=== PATIENT | male | born 1955 | race Caucasian/White ===

== ENCOUNTER 2016-09-24 09:49 | Outpatient (CLI) ==
[2016-01-31 17:35] VITALS: BMI 39.3
--- NOTE | 2016-09-24 12:12 | CT ---
Exam: CT scan of the abdomen and pelvis with intravenous contrast material History: Bilateral upper quadrant pain Findings: Computed tomography of the abdomen and pelvis was performed utilizing intravenous injecti on of 75 ml of Visipaque 320. Scans reviewed in the axial plane at 5 mm slice thickness and in the coronal and sagittal planes at 3 mm slice thickness with comparison made to the prior study from . Review of lung window settings through the lung bases shows no evidence of acute basilar i nfiltrate, consolidate or basilar pleural effusion. The enhanced liver measures less dense than the spleen suggesting mild diffuse fatty infiltration. The spleen does not appear to be overtly enlarged on the present study measured approximately 12.9 c m in length. The gallbladder has been previously resected. The pancreas appeared without significa nt abnormality. The adrenal glands appear to be of normal size and configuration. Bilaterally ther e is satisfactory enhancement of both kidneys without evidence of radiopaque renal nor ureteral calc ulus nor evidence of hydronephrosis nor ureteral dilatation. The bladder is distended with non enha nced urine and without significant abnormality demonstrated. There is a moderate degree of diffuse atherosclerotic calcification of the abdominal aorta and the c ommon iliac arteries but without associated aneurysmal dilatation. Throughout the abdomen and pelvis there is no evidence of a concerning mass, evidence of pathologic adenopathy, evidence of active inflammatory changes nor abnormal fluid collection. Severe degenerative disc disease is noted at the lumbosacral articulation where there also appears t o be approximately 7-8 mm of anterior spondylolisthesis of L5 relative to S1 seen in association wit h at least a left-sided pars defect and severe bilateral facet joint degenerative changes. Impression: Suspect mild diffuse fatty infiltration of the liver. No evidence of active inflammatory changes, abnormal fluid collection nor concerning mass nor pathol ogic adenopathy. Spleen is borderline elongated measuring approximate 12.9 cm in length. Grade 1 anterior spondylolisthesis of L5 relative to S1 seen in association with severe disc space d egenerative changes and at least a unilateral pars defect of L5.
== END 2016-09-24 09:50 | disposition home or self-care (01) ==
LOC: RAD 09:49
PROVIDERS: ATTEND Internal Medicine
DX: R10.10 Upper abdominal pain, unspecified (principal)

== ENCOUNTER 2017-01-20 08:30 | Day surgery (SDC) ==
[2016-01-31 17:35] VITALS: BMI 39.3
[2017-01-20] MEDS ORDERED: LIDOCAINE 1% 20 ML MDV ID ONE (08:57)
[2017-01-20] MEDS ORDERED: VERSED ONE (10:45)
[2017-01-20] MEDS ORDERED: DIPRIVAN 20 ML VIAL IVP ONE (10:45)
[2017-01-20] MEDS ORDERED: SUBLIMAZE ONE (10:45)
[2017-01-20 12:05] VITALS: BP 111/65; TEMP 98
--- NOTE | 2017-01-21 09:30 | OP ---
INDICATIONS FOR PROCEDURE: 61-year-old gentleman presents for colonoscopy exam. He has a history of adenomatous polyps removed 3 1/2 years ago. MEDICATIONS: SEE ANESTHESIA NOTES. PROCEDURE: COLONOSCOPY, SNARE POLYPECTOMY. REPORT: The risks, benefits, alternatives and limitations were discussed in detail with the patient. Informed consent was obtained. After adequate sedation was achieved, a digital rectal exam revealed good tone, no masses. The colonoscope was introduced into the rectum and advanced under direct visual guidance to the cecum. The cecum was identified by the appendiceal orifice and IC valve. I then slowly withdrew the scope in a circumferential manner examining the mucosa quite carefully. I looked on the proximal and distal side of folds and flexures as best as possible. I was able to retroflex the scope in the right colon and left colon to increase visualization. In the transverse colon there was a 6 mm semi sessile polyp that I removed by snare technique. In the descending area there were two polyps about 5 or 6 mm size, slightly raised both removed by snare technique. One of them was destroyed, the other one was retrieved. In the rectum there was a 5 mm slightly raised polyp that I removed by snare technique. No other abnormalities were noted including on retroflex view of the anal canal. The prep was adequate. The withdrawal time was 16 minutes and 7 seconds. The patient tolerated the procedure well with stable vital signs and pulse oximetry throughout. IMPRESSION: 1. FOUR (4) POLYPS REMOVED. RECOMMENDATIONS: 1. High fiber diet. 2. Office visit as needed. 3. Colonoscopy examination again in 3 years, sooner if there are any signs or symptoms to indicate otherwise. CC: DR. DESIRAE MCCORD
== END 2017-01-20 12:12 | disposition home or self-care (01) ==
LOC: SURG 08:30
PROVIDERS: ATTEND Internal Medicine Gastroenterology
DX: Z09 Encounter for follow-up examination after completed treatment for conditions other than malignant neoplasm (principal); Z86.010 Personal history of colon polyps; D12.3 Benign neoplasm of transverse colon; D12.4 Benign neoplasm of descending colon; D12.7 Benign neoplasm of rectosigmoid junction; K63.5 Polyp of colon; E11.9 Type 2 diabetes mellitus without complications
CPT/HCPCS: 82962

== ENCOUNTER 2017-04-28 12:27 | Outpatient (CLI) | payer OTHER ==
[2016-01-31 17:35] VITALS: BMI 39.3
[2017-04-28 12:55] LABS: BASOPHILS % (AUTO) 0.4 % (0.0-3.0); EOSINOPHILS # (AUTO) 0.3 K/ul (0.0-0.7); HEMATOCRIT 45.1 % (42.0-52.0); HEMOGLOBIN 15.7 g/dl (14.0-18.0); IMMATURE GRANULOCYTE % (AUTO) 0.7 % (0.0-5.0); LYMPHOCYTES # (AUTO) 2.7 K/uL (0.60-3.4); MEAN CORPUSCULAR HGB CONC 34.8 (31.8-35.4); MEAN CORPUSCULAR VOLUME 83.4 fl (80.0-94.0); MONOCYTES # (AUTO) 0.5 K/uL (0.4-2.0); MONOCYTES % (AUTO) 7.1 (0-10); NEUTROPHILS # (AUTO) 3.7 K/ul (2.0-6.9); NEUTROPHILS % (AUTO) 50.8; PLATELET COUNT 178 10^3/uL (140-440); RED BLOOD COUNT 5.41 10^6/ul (4.70-6.10); WHITE BLOOD COUNT 7.29 K/ul (4.2-10.2)
[2017-04-28 13:33] LABS: ALBUMIN 3.9 g/dL (3.4-5.0); ALBUMIN/GLOBULIN RATIO 1.15; ANION GAP 14.1; BILIRUBIN,TOTAL 0.47 mg/dL (0.00-1.20); BUN/CREATININE RATIO 14.28; CALCIUM 9.9 mg/dL (8.2-10.2); CHOL/HDL RATIO 3.2 (4.5-6.4); CREATININE 1.19 mg/dL (0.60-1.10); POTASSIUM 4.1 mmol/L (3.5-5.1); TOTAL PROTEIN 7.3 g/dL (5.8-8.1)
== END 2017-04-28 12:28 | disposition home or self-care (01) ==
LOC: LAB 12:27
PROVIDERS: ATTEND Emergency Medicine
DX: E78.5 Hyperlipidemia, unspecified (principal); E11.9 Type 2 diabetes mellitus without complications; I10 Essential (primary) hypertension; J44.9 Chronic obstructive pulmonary disease, unspecified; K21.9 Gastro-esophageal reflux disease without esophagitis
CPT/HCPCS: 36415; 80053; 80061; 83036; 84443; 85025

== ENCOUNTER 2017-10-19 09:38 | Outpatient (CLI) ==
[2016-01-31 17:35] VITALS: BMI 39.3
--- NOTE | 2017-10-19 10:26 | DI ---
Exam: Left shoulder three-view History: Shoulder pain Findings / impression: At least moderate osteoarthritic change of the glenohumeral joint manifest by marginal osteophytosis and probable subchondral cysts. Mild osteoarthritic enlargement of the acrom ioclavicular joint. No acute bony or articular abnormalities are seen.
== END 2017-10-19 09:39 | disposition home or self-care (01) ==
LOC: LAB 09:38
PROVIDERS: ATTEND Physician Assistant Medical
DX: E78.5 Hyperlipidemia, unspecified (principal); E03.9 Hypothyroidism, unspecified; R53.83 Other fatigue; E05.90 Thyrotoxicosis, unspecified without thyrotoxic crisis or storm; I10 Essential (primary) hypertension; M25.512 Pain in left shoulder; E11.9 Type 2 diabetes mellitus without complications; Z79.4 Long term (current) use of insulin
CPT/HCPCS: 36415; 80053; 80061; 82043; 83036; 84439; 84443; 85025

== ENCOUNTER 2017-10-26 09:43 | Outpatient (CLI) ==
[2016-01-31 17:35] VITALS: BMI 39.3
--- NOTE | 2017-10-26 10:19 | DI ---
EXAM: Chest two views HISTORY: Intercostal pain COMPARISON: 01/31/2016 TECHNIQUE: Two views of the chest were performed FINDINGS: The lungs are clear. Chronic blunting left costophrenic angle likely pleural parenchymal scarring. No definite pleural effusion. No visible pneumothorax. The heart is normal in size. The mediastinal contour is normal. There are no acute abnormalities of the bones. Right shoulder arthro plasty. IMPRESSION: No acute cardiopulmonary process.
--- NOTE | 2017-10-26 10:24 | DI ---
EXAM: Right knee, four views, 10/26/2017 HISTORY: Pain COMPARISON: None. FINDINGS / IMPRESSION: Moderate osteoarthritic degenerative change. Medial joint space narrowing. Tricompartmental osteophyte formation. There is no evidence of fracture or subluxation. The extensor mechanism is intact. Trace suprapatel lar joint effusion.
--- NOTE | 2017-10-26 10:31 | DI ---
Exam: Four x-rays of the left knee. Comparison: 07/20/2007. Reason for exam: Pain in left knee. FINDINGS: No acute fracture or dislocation. Calcifications are seen in the region of the lateral co llateral ligament insertion. There is mild medial and patellofemoral joint space narrowing with oste ophyte formation. Impression: 1. No acute fracture or dislocation is seen. 2. Calcifications in the region of the lateral collateral ligament insertion. Imaging findings can be seen with trauma and degeneration. If clinical concern exists, further evaluation may be performe d. 3. Mild to moderate degenerative disease in the left knee.
== END 2017-10-26 09:44 | disposition home or self-care (01) ==
LOC: RAD 09:43
PROVIDERS: ATTEND Emergency Medicine
DX: R07.82 Intercostal pain (principal); M25.561 Pain in right knee; M25.562 Pain in left knee; G89.29 Other chronic pain

== ENCOUNTER 2017-10-27 09:41 | Outpatient (CLI) | payer OTHER ==
[2016-01-31 17:35] VITALS: BMI 39.3
--- NOTE | 2017-10-27 10:48 | DEXA ---
Exam: Bone densitometry DEXA scan performed on the [employer]. Comparison: None available. Reason for exam: Other specified disorder of bone density. FINDINGS: Imaging was obtained of the lumbar spine and deemed to be adequate for interpretation. The total BMD of the lumbar spine measures 1.440 grams per centimeter squared T-score 1.8. Z-score 1.5 WHO classification suggests normal bone mineral density Imaging was obtained of the left and right hip and deemed to be adequate for interpretation. Total BMD of the left hip measures 1.215 grams per centimeter squared T-score 0.8. Z-score 0.8 The BMD of the left femoral neck measures 0.957 grams per centimeter squared T-score -0.9. Z-score -0.4 WHO classification suggests normal bone mineral density Total BMD of the right hip measures 1.194 grams per centimeter squared T-score 0.6. Z-score 0.7 BMD of the right femoral neck measures 0.94 grams per centimeter squared T-score -0.7. Z-score -0.2 WHO classification suggests normal bone mineral density Impression: 1. WHO classification suggests normal bone mineral density of the lumbar spine and both hips. 2. WHO fracture risk assessment tool (FRAX) 10-year fracture risk percentage Major osteoporotic fracture risk over 10 years. 4.6%. Hip fracture risk over 10 years. 0.4%.
== END 2017-10-27 09:42 | disposition home or self-care (01) ==
LOC: RAD 09:41
PROVIDERS: ATTEND Emergency Medicine
DX: M85.89 Other specified disorders of bone density and structure, multiple sites (principal)

== ENCOUNTER 2017-12-03 09:00 | Outpatient (RCR) ==
[2016-01-31 17:35] VITALS: BMI 39.3
--- NOTE | 2017-11-10 11:38 | RS.OPPTEV2 ---
Date of Note: 11/10/17 Visit #: 1 Date of Evaluation: 11/10/17 Payer Source: MEDICARE Treatment Diagnosis: Calcific tendonitis L shld History of Condition/Mechanism of Injury:: pt reports that pain in L shld began approx 08/2017. pt states he has had long hx of issues with R shld s/p 4 sx. pt states he did not suffer any specific injury to L shld it just began hurting. Prior Level of Function.....Patient was independent with: ADL's, Self Care, Ambulation/Mobility, Community Integration/Access Functional Limitations: Sleep, ADL's, Reaching, Pushing, Pulling, Lifting, Carrying Current Subjective/complaints:: pt states he saw Dr. Evangelista and he gave him some sample of a topical analgesic for L shld and it really helps, states the L shld pain limits his sleep. Treatment Side (optional): Left *Precautions: n/a Medical History Medical History: Hypertension, Diabetes, Arthritis Surgical History: Cholecystectomy, Other Surgical History Comments:: Reverse total shoulder replacement, appey, cataract sx. Smoking Status: Former smoker Diagnostic Testing/Imaging:: states he had x rays at [facility]. Hx Home Medications: fenofibrate, lisinopril, amitriptylin, rapaflo, ranitidine , latanoprost, rosuvastatin, omega 3, metformin, citalopram, potassium cl, duloxetine, furosemide, esomepra mag, carvedilol, humalog, hydroco/apap, victoza , invokana, diazepam, tramadol Pain Assessment - Pain Description Pain Location: L shld Pain Description: Aching Current Pain Intensity: 0 at rest Worst Pain Intensity: 9/10 Other Comments regarding Pain:: States the topical analgesic has really helped him. Functional Outcome Measure UE Functional Index: 29 (64%) - G Codes & Severity Modifier G Codes & Modifier: carrying, moving, handling current CL. carrying, moving, handling goal CJ Source of G Code score: UE functional index. Observation - Observation Posture: Forward Head, Rounded Shoulders, Increased Thoracic Kyphosis Handedness: Right Gait - Gait Pattern General Gait Pattern Observation: No Deviations/Normal General Range of Motion: BLE WFL's. RUE WFL's Muscle Strength: BLE 5/5. RUE shld flex 4+/5, elbow flex/ext 4+/5, Shoulder ROM: Right WFL's - Left Shoulder ROM Left Shoulder Flexion: 160 (AAROM) Left Shoulder Abduction: 130 (AAROM) Left Shoulder External Rotation: 40 (AAROM) Left Shoulder ROM Limitations: Soft Tissue Tightness, Muscle Weakness, Pain - Left Shoulder Strength Left Shoulder Flexion: 3+ Fair+ Left Shoulder Extension: 3+ Fair+ Left Shoulder Abduction: 3+ Fair+ Left Shoulder External Rotation: 3- Fair- - Special Tests Shoulder Empty Can (Supraspinatus) Test: Negative Left Shoulder Speed's Sign Test: Positive Left Shoulder Drop Arm Test: Negative Left Comments: Lift off test positive LUE Palpation Palpation Findings: Tenderness, Trigger Point, Muscle Guarding Comments:: pt with tenderness and muscle guarding noted to L upper traps as well as trigger points noted suprascapular area. Sensation - Sensation Right Upper Extremity: Impaired Left Upper Extremity: Intact/Normal Right Lower Extremity: Intact/Normal Left Lower Extremity: Intact/Normal Comments: pt reports numbness noted in R hand since previous shld surgeries. Balance - Sitting Balance Static Sitting Balance: Normal Dynamic Sitting Balance: Normal - Standing Balance Static Standing Balance: Normal Dynamic Standing Balance: Normal - Heat/Cryotherapy Treatment: Cryotherapy (L shld) Interventions - Exercise/Activities/Manual Therapy Exercises/Activities: pt performed L shld pendulum ex, isometric shld flex, ext , abd, add, as well as scapular retraction, shld shrugs Manual Therapy: n/a HOME EXERCISE PROGRAM: pt given written HEP including scapular retraction, shld shrugs, isometric shld flex, ext, abd, add. - Charges Timed Code Treatment Minutes: 47 Total Treatment Time: 58 Procedures billed for this date of service:: eval low, CP EVALUATION COMPLEXITY LEVEL EVALUATION COMPLEXITY LEVEL: HISTORY: Medium (DM, OA, HTN, tendonitis), EXAM OF BODY SYSTEMS: Medium (pain, strength, ROM), CLINICAL PRESENTATION: Low, CLINICAL DECISION MAKING: Low Assessment Assessment: pt presents with pain in L shld, decreased L shld ROM, decreased strength, pt with positive speeds test L shld indicative of biceps tendonitis, as well as pain and tenderness over bicipital groove, AC joint. Trigger points noted in mid scapular area. Patient Education: Home Exercise Program, Education of Plan of Care Rehab Potential: Good Short Term Goals Goal #1: pt report ability to sleep for 4-6 hours without interruption from pain. Goal to be met by: 12/01/17 Goal #2: pt demonstrate improved ROM L shld flex 170, abd 140 ER 45 Goal to be met by: 12/01/17 Goal #3: Improve strength L shld 4- to 4/5 with decreased pain. Goal to be met by: 12/01/17 Goal #4: . 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 Goal to be met by: 12/22/17 (50%) Goal #2: Improve L shld ROM WFL's with decreased pain Goal to be met by: 12/22/17 Goal #3: Improved strength LUE 4 to 4+/5 Goal to be met by: 12/22/17 (70%) Goal #4: pt is independent with HEP Goal to be met by: 12/22/17 Plan - Treatment to be Provided Procedures: Therapeutic Exercises, Therapeutic Activity, Manual Therapy, Patient Education Modalities: Electrical Stimulation, Ultrasound/Phonophoresis, Cryotherapy, Hot Packs - Treatment Plan Frequency: 2 X week Duration: 6 weeks ORDER # VISITS AND/OR THROUGH DATE: 12/22/17 - Treatment Code (1) Calcific tendonitis of left shoulder Code(s): M75.32 - CALCIFIC TENDINITIS OF LEFT SHOULDER (2) Pain in joint, shoulder region Code(s): M25.519 - PAIN IN UNSPECIFIED SHOULDER Qualifiers: Laterality: left Qualified Code(s): M25.512 - Pain in left shoulder (3) Muscle weakness Code(s): M62.81 - MUSCLE WEAKNESS (GENERALIZED) (4) Joint stiffness Code(s): M25.60 - STIFFNESS OF UNSPECIFIED JOINT, NOT ELSEWHERE CLASSIFIED
--- NOTE | 2017-11-13 11:31 | RS.OPPTDN ---
Subjective Date of Note: 11/13/17 Visit #: 2 Date of Evaluation: 11/10/17 Payer Source: MEDICARE Treatment Diagnosis: Calcific tendonitis L shld Current Subjective/complaints:: Patient reports tenderness in the anterior left shoulder joint at biceps tendon and at posterior joint with palpation. Reports muscle cramps in the left posterior shoulder and the right ribs following posterior capsule stretch. States muscle cramps haave been worse since taking prednisone. Reports no left shoulder pain following treatment. *Precautions: n/a Pain Assessment - Pain Description Pain Location: Left shoulder joint Current Pain Intensity: mild at rest Other Comments regarding Pain:: Reports significant pain in the left shoulder with palpation and with AROM above shoulder height. - Treatment Modality: Ultrasound Parameters/Method Applied: [id number] at 1.5w/cm2 to the left shoulder joint, 6mins each to anterior joint and the posterior joint, prior to MT and EX. Patient Position: Sitting - Heat/Cryotherapy Treatment: Hot Pack ([id number] HP to left shoulder prior to US), Cryotherapy ( [id number] CP to the left shoulder joint to end treatment. ) Interventions - Exercise/Activities/Manual Therapy Exercises/Activities: [id number] PROM of the left shoulder. AAROM of the left shoulder. Isometric shoulder add, ext, IR, and ER, all multipe sets of 5 reps with manual resistance. Left shld pendulum ex. Shoulder shrugs and scap retraction. Reviewed HEP. Advised patient to stop resistive biceps curl. Total minutes of Exercise: 10mins Manual Therapy: x5mins Friction massage to the left shoulder biceps tendon. Trigger point release to the posterior sholder joint at the infraspinatus. Total minutes of Manual Therapy: 5mins HOME EXERCISE PROGRAM: pt given written HEP including scapular retraction, shld shrugs, isometric shld flex, ext, abd, add. - Charges Timed Code Treatment Minutes: 27mins Total Treatment Time: 52 Procedures billed for this date of service:: HP, US, EX Assessment: Patient with continued left shoulder pain. He may be aggravating the left biceps with resistive curls and has been advised to hold this exercise. Patient Education: Body/Joint mechanics, Home Exercise Program, Activity Modification Patient demonstrates compliance with HEP?: Yes Short Term Goals Goal #1: pt report ability to sleep for 4-6 hours without interruption from pain. Goal to be met by: 04/24/18 Goal #2: pt demonstrate improved ROM L shld flex 170, abd 140 ER 45 Goal to be met by: 12/01/17 Goal #3: Improve strength L shld 4- to 4/5 with decreased pain. Goal to be met by: 12/01/17 Goal #4: . 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
--- NOTE | 2017-11-17 14:50 | RS.OPPTDN ---
Subjective Date of Note: 11/17/17 Visit #: 3 Date of Evaluation: 11/10/17 Payer Source: MEDICARE Treatment Diagnosis: Calcific tendonitis L shld Current Subjective/complaints:: Patient says shoulder has been hurting more since his last session. Reports the only way to calm his pain after exercise is using ice pack. *Precautions: n/a - Treatment Modality: Ultrasound Parameters/Method Applied: continuous @ 1.6 w/cm2 x 12 mins to the ant/post L shoulder and also into the L UT Patient Position: Sitting - Heat/Cryotherapy Treatment: Hot Pack (15 mins to the L shoulder in sitting/CP x 10 mins after therex) Interventions - Exercise/Activities/Manual Therapy Exercises/Activities: [id number] PROM of the left shoulder. AAROM of the left shoulder. Isometric shoulder add, ext, IR, and ER, all multipe sets of 5 reps with manual resistance. Patient performs shoulder shrugs and ended with pulleys for flexion x 12 reps. Manual Therapy: na HOME EXERCISE PROGRAM: pt given written HEP including scapular retraction, shld shrugs, isometric shld flex, ext, abd, add. - Charges Timed Code Treatment Minutes: 27 Total Treatment Time: 54 Procedures billed for this date of service:: hp, u/s, ex Assessment: Patient presenting with severe L shoulder pain that extends to the L UT with tenderness to mod palpation during u/s. Patient unable to sarahi passive shoulder flexion beyond ~125-130 degrees. Isometric shoulder IR/ER/EXT causes increase in pain after ~2-3 reps. L UT remains with moderate increase in muscle tone. However, he is able to sarahi shoulder flexion near WNL during pulleys as he appears less anxious and guarded. Patient Education: Education of diagnosis, Home Exercise Program, Education of Plan of Care Patient demonstrates compliance with HEP?: Yes Short Term Goals Goal #1: pt report ability to sleep for 4-6 hours without interruption from pain. Goal to be met by: 12/01/17 Goal #2: pt demonstrate improved ROM L shld flex 170, abd 140 ER 45 Goal to be met by: 12/01/17 Goal #3: Improve strength L shld 4- to 4/5 with decreased pain. Goal to be met by: 12/01/17 Goal #4: . 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
--- NOTE | 2017-11-19 12:55 | RS.OPPTDN ---
Subjective Date of Note: 11/19/17 Visit #: 4 Date of Evaluation: 11/10/17 Payer Source: MEDICARE Treatment Diagnosis: Calcific tendonitis L shld Current Subjective/complaints:: Patient says when he left his last session, he had increased pain. He says he has been using "Pennasaid" topical samples from his MD which nearly take pain completely away. *Precautions: n/a Pain Assessment - Pain Description Pain Location: does not rate, but says it is elevated - Treatment Modality: Ultrasound Parameters/Method Applied: continuous @ 1.6 w/cm2 x 12 mins to L UT and L shoulder joint Patient Position: Sitting - Heat/Cryotherapy Treatment: Hot Pack (15 mins to the L shoulder in sitting) Interventions - Exercise/Activities/Manual Therapy Exercises/Activities: [id number] PROM of the left shoulder. AAROM of the left shoulder. Isometric shoulder add, ext, IR, and ER, all multipe sets of 5 reps with manual resistance. 1# wand for bilateral shoulder flexion to ~ 150 degrees and ABD to ~140 degrees. Patient performs shoulder shrugs and ended with pulleys for flexion x 12 reps with static holds at end ranges (~165 degrees). Manual Therapy: na HOME EXERCISE PROGRAM: pt given written HEP including scapular retraction, shld shrugs, isometric shld flex, ext, abd, add. - Charges Timed Code Treatment Minutes: 30 Total Treatment Time: 45 Procedures billed for this date of service:: hp, u/s, ex Assessment: Patient has not experienced pain relief at present with current treatment. He admits only temporary relief of L sided neck and shoulder pain, but more so using topical "Pennsaid" cream (used BID). He does demo improved active shoulder flexion and ABD from previous treatment and during pito activity by ~15-20 degrees. He remains with limitation mostly with IR/ER motion and pain. Patient Education: Home Exercise Program, Education of Plan of Care Patient demonstrates compliance with HEP?: Yes Short Term Goals Goal #1: pt report ability to sleep for 4-6 hours without interruption from pain. Goal to be met by: 12/01/17 Goal #2: pt demonstrate improved ROM L shld flex 170, abd 140 ER 45 Goal to be met by: 12/01/17 Goal #3: Improve strength L shld 4- to 4/5 with decreased pain. Goal to be met by: 12/01/17 Goal #4: . 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 May modify treatment to u/s combo
--- NOTE | 2017-11-24 11:41 | RS.OPPTDN ---
Subjective Date of Note: 11/24/17 Visit #: 5 Date of Evaluation: 11/10/17 Payer Source: MEDICARE Treatment Diagnosis: Calcific tendonitis L shld Current Subjective/complaints:: Patient says he has not had the spasms in his neck and arm like he had before. He and his say he has more mobility of the L arm. *Precautions: n/a - Treatment Modality: Ultrasound Parameters/Method Applied: continuous @ 1.6 w/cm2 x 12 mins to the L UT and surrounding the L shoulder Patient Position: Sitting - Heat/Cryotherapy Treatment: Hot Pack (over the L shoulder and neck x 20 mins in sitting) Interventions - Exercise/Activities/Manual Therapy Exercises/Activities: [id number] PROM of the left shoulder. AAROM of the left shoulder. Isometric shoulder add, ext, IR, and ER, all multipe sets of 5 reps with manual resistance. 1# wand for bilateral shoulder flexion and ABD. Scap retraction with green tband in standing x 10. Patient performs shoulder shrugs and ended with pulleys for flexion x 12 reps with static holds at end ranges (~ 165 degrees). Due to patient's decreased pain level at end of session, he felt it did not require cryotherapy. Manual Therapy: na HOME EXERCISE PROGRAM: pt given written HEP including scapular retraction, shld shrugs, isometric shld flex, ext, abd, add. - Charges Timed Code Treatment Minutes: 34 Total Treatment Time: 54 Procedures billed for this date of service:: hp, u/s, ex Assessment: Patient experiencing less pain to the L shoulder and no muscle spasms in the past few days as well. He is able to elevate the L UE easier and further than previous session by 5-10 degrees (actively). Patient Education: Home Exercise Program, Education of Plan of Care Patient demonstrates compliance with HEP?: Yes Short Term Goals Goal #1: pt report ability to sleep for 4-6 hours without interruption from pain. Goal to be met by: 12/01/17 Progress towards Goal:: Progressing Goal #2: pt demonstrate improved ROM L shld flex 170, abd 140 ER 45 Goal to be met by: 12/01/17 Progress towards Goal:: Progressing Goal #3: Improve strength L shld 4- to 4/5 with decreased pain. Goal to be met by: 12/01/17 Progress towards Goal:: Progressing Goal #4: . 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
--- NOTE | 2017-11-26 11:52 | RS.OPPTDN ---
Subjective Date of Note: 11/26/17 Visit #: 6 Date of Evaluation: 11/10/17 Payer Source: MEDICARE Treatment Diagnosis: Calcific tendonitis L shld Current Subjective/complaints:: Patient says he used his zero turn mower yesterday and began to have return of spasms to L lower rib area. Says that he hasn't had that "in a while." He says he was able finish mowing. Reports that mobiity is improving in the arm and says that he seems to be grimacing less with several tasks around the home. *Precautions: n/a Pain Assessment - Pain Description Pain Location: "mild" - Treatment Modality: Ultrasound Parameters/Method Applied: Continuous @ 1.5 w/cm2 x 10 mins to the L UT and surrounding the L shoulder Patient Position: Sitting - Heat/Cryotherapy Treatment: Hot Pack (over the L shoulder and neck x 15 mins) Interventions - Exercise/Activities/Manual Therapy Exercises/Activities: [id number] PROM of the left shoulder. AAROM of the left shoulder. Isometric shoulder add, ext, IR, and ER, all multipe sets of 5 reps with manual resistance. 1# wand for bilateral shoulder flexion and ABD. Scap retraction with green tband in standing x 10. Patient performs shoulder shrugs and ended with pulleys for flexion and abd x 12 reps with static holds at end ranges (~165 degrees). Manual Therapy: na HOME EXERCISE PROGRAM: pt given written HEP including scapular retraction, shld shrugs, isometric shld flex, ext, abd, add. - Charges Timed Code Treatment Minutes: 32 Total Treatment Time: 47 Procedures billed for this date of service:: hp, u/s, ex Assessment: Patient able to resume some household duties with improved ease, but spasms have returned intermittently to the lower L side along ribs during mowing and adjusting arms on zero turn yesterday. ROM is Actively WFL and Passively WNL at this point. Patient Education: Education of Plan of Care Patient demonstrates compliance with HEP?: Yes Short Term Goals Goal #1: pt report ability to sleep for 4-6 hours without interruption from pain. Goal to be met by: 12/01/17 Progress towards Goal:: Progressing Goal #2: pt demonstrate improved ROM L shld flex 170, abd 140 ER 45 Goal to be met by: 12/01/17 Progress towards Goal:: Partially Met Goal #3: Improve strength L shld 4- to 4/5 with decreased pain. Goal to be met by: 12/01/17 Progress towards Goal:: Met Goal #4: . 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
--- NOTE | 2017-12-01 10:51 | RS.OPPTDN ---
Subjective Date of Note: 12/01/17 Visit #: 7 Date of Evaluation: 11/10/17 Payer Source: MEDICARE Treatment Diagnosis: Calcific tendonitis L shld Current Subjective/complaints:: Patient says he went back to the MD yesterday and received a cortisone injection. He says the shot helped, but increased his blood sugar to over 320 this morning. He says he continues to have spasms to the L shoulder blade and upper arm as well as down into the forearm. ROM has gotten easier and increased slightly. *Precautions: n/a Pain Assessment - Pain Description Pain Location: L shoulder, inferior scapula region and L forearm. - Treatment Modality: Ultrasound Parameters/Method Applied: continuous @ 1.5 w/cm2 x 12 mins to the inferior scap region and to the L shoulder. Patient Position: Sitting - Heat/Cryotherapy Treatment: Hot Pack (over the L shoulder ant/post x 20 mins in sitting) Interventions - Exercise/Activities/Manual Therapy Exercises/Activities: [id number] PROM of the left shoulder. AAROM of the left shoulder. Isometric shoulder add, ext, IR, and ER, all multipe sets of 5 reps with manual resistance. 3# wand for bilateral shoulder flexion and ABD. Scap retraction with green tband in standing x 10. 1# pendulum and limited shoulder abd/flexion in chair x 10. Patient did not feel he needed cryotherapy at this point. Manual Therapy: na HOME EXERCISE PROGRAM: pt given written HEP including scapular retraction, shld shrugs, isometric shld flex, ext, abd, add. - Charges Timed Code Treatment Minutes: 34 Total Treatment Time: 54 Procedures billed for this date of service:: hp, u/s, ex Assessment: Patient sarahi increased Passive flexion and ABD to ~170 degrees before pain is present. He received a cortisone injection yesterday and feels it has improved pain level, but continues with spasms intermittently. He has a continuation order for 3x6 weeks, but needs to have reassessment per medicare in 3 more sessions. Patient Education: Education of diagnosis, Home Exercise Program, Education of Plan of Care Patient demonstrates compliance with HEP?: Yes Short Term Goals Goal #1: pt report ability to sleep for 4-6 hours without interruption from pain. Goal to be met by: 12/01/17 Progress towards Goal:: Progressing Goal #2: pt demonstrate improved ROM L shld flex 170, abd 140 ER 45 Goal to be met by: 12/01/17 Progress towards Goal:: Met Goal #3: Improve strength L shld 4- to 4/5 with decreased pain. 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
--- NOTE | 2017-12-03 10:18 | RS.OPPTDN ---
Subjective Date of Note: 12/03/17 Visit #: 8 Date of Evaluation: 11/10/17 Payer Source: MEDICARE Treatment Diagnosis: Calcific tendonitis L shld Current Subjective/complaints:: pt states he was up all night with muscle spasms and his arm "jerking". States that he is feeling better after getting injection at last MD visit. *Precautions: n/a Pain Assessment - Pain Description Pain Location: L shld Pain Description: Tightness Current Pain Intensity: 0 at rest Other Comments regarding Pain:: states his shld feels "tight" - Treatment Modality: Ultrasound Parameters/Method Applied: 1.5w/cm2 x 12 mins Treatment Area: L scapular area, L ant shld Patient Position: Sitting - Heat/Cryotherapy Treatment: Hot Pack Comments:: L shld Interventions - Exercise/Activities/Manual Therapy Exercises/Activities: 15mins pt performed isometric shld flex, abd, add,. shld flex with 3# wand, scapular retraction with green theraband x 10 reps. Manual Therapy: na HOME EXERCISE PROGRAM: pt given written HEP including scapular retraction, shld shrugs, isometric shld flex, ext, abd, add. - Charges Timed Code Treatment Minutes: 40 Total Treatment Time: 50 Procedures billed for this date of service:: ultrasound, ex, hot pack Assessment: pt continues with decreased ROM L shld, and pain, muscle tightness in L shld. pt is progressing with decreased pain. Patient Education: Home Exercise Program, Education of Plan of Care Patient demonstrates compliance with HEP?: No Short Term Goals Goal #1: pt report ability to sleep for 4-6 hours without interruption from pain. Goal to be met by: 12/01/17 Progress towards Goal:: Progressing Comments:: pt states he was up all night due to muscle spasms. Goal #2: pt demonstrate improved ROM L shld flex 170, abd 140 ER 45 Goal to be met by: 12/01/17 Progress towards Goal:: Met Goal #3: Improve strength L shld 4- to 4/5 with decreased pain. Goal to be met by: 12/01/17 Progress towards Goal:: Met Goal #4: . 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
== END 2017-12-07 23:59 ==
PROVIDERS: ATTEND Orthopaedic Surgery
DX: M19.012 Primary osteoarthritis, left shoulder (principal); M75.32 Calcific tendinitis of left shoulder; M25.512 Pain in left shoulder; M62.81 Muscle weakness (generalized); M25.612 Stiffness of left shoulder, not elsewhere classified

== ENCOUNTER 2017-12-24 09:00 | Outpatient (RCR) ==
[2017-10-27 09:44] VITALS: BMI 39.3
--- NOTE | 2017-12-08 10:44 | RS.OPPTDN ---
Subjective Date of Note: 12/08/17 Visit #: 9 Date of Evaluation: 11/10/17 Payer Source: MEDICARE Treatment Diagnosis: Calcific tendonitis L shld Current Subjective/complaints:: Patient says his arm is really improving this past week. Says he did some yard work over the weekend and did not have the trouble or pain he expected. *Precautions: n/a Pain Assessment - Pain Description Pain Location: Decreased L shoulder pain (ant/lateral/post shoulder) - Treatment Modality: Ultrasound Parameters/Method Applied: continuous @ 1.6 w/cm2 x 10 mins to the L mid scapula and surrounding the L shoulder Patient Position: Sitting - Heat/Cryotherapy Treatment: Hot Pack (20 mins to the L shoulder in sitting) Interventions - Exercise/Activities/Manual Therapy Exercises/Activities: PROM to the L shoulder all dir. Manual isometrics all dir 2x10, 4# wand for bilateral shoulder flexion, blue tband for scap retraction , ball on the wall for counter and clockwise x 12. Total minutes of Exercise: 20 Manual Therapy: na HOME EXERCISE PROGRAM: pt given written HEP including scapular retraction, shld shrugs, isometric shld flex, ext, abd, add. - Charges Timed Code Treatment Minutes: 30 Total Treatment Time: 50 Procedures billed for this date of service:: hp, u/s, ex Assessment: Patient demo increased ROM and strength sarahi today. He was able to perform some light yardwork over the weekend as well, but unable to chainsaw after he pulled to start x 2 and realized he would not be able to complete the task. Patient Education: Home Exercise Program Patient demonstrates compliance with HEP?: Yes Short Term Goals Goal #1: pt report ability to sleep for 4-6 hours without interruption from pain. Goal to be met by: 12/01/17 Progress towards Goal:: Progressing Goal #2: pt demonstrate improved ROM L shld flex 170, abd 140 ER 45 Goal to be met by: 12/01/17 Progress towards Goal:: Met Goal #3: Improve strength L shld 4- to 4/5 with decreased pain. Goal to be met by: 12/01/17 Progress towards Goal:: Met Goal #4: . 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
--- NOTE | 2017-12-10 11:35 | RS.OPPTDN ---
Subjective Date of Note: 12/10/17 Visit #: 10 Date of Evaluation: 11/10/17 Payer Source: MEDICARE Treatment Diagnosis: Calcific tendonitis L shld Current Subjective/complaints:: Patient says he barely has any "pain" anymore. Reports continued spasms to the rib area (L), but none to the shoulder. He says his sugar is up today to ~345 (fasting), but says this is normal for him. Rates pain 11/17 and admits he always feels better when he leaves. *Precautions: n/a Pain Assessment - Pain Description Pain Location: 11/17 - Heat/Cryotherapy Treatment: Hot Pack (20mins to the L shoulder in sitting) Interventions - Exercise/Activities/Manual Therapy Exercises/Activities: PROM to the L shoulder all dir in supine. Manual isometrics all dir 2x10, 4# wand for bilateral shoulder flexion and chest press , green tband for pull downs, IR, horizontal abd, ER all x 12 reps. Blue tband in scap retraction and 3# wand for bilateral overhead flexion in standing x 12. Total minutes of Exercise: 27 Manual Therapy: na HOME EXERCISE PROGRAM: pt given written HEP including scapular retraction, shld shrugs, isometric shld flex, ext, abd, add. - Objective Findings Observations,measurements,etc.: Patient demo improvement per UE Functional Scale per reports and observation/presentation to 42/80 or 47% impairment (EVAL measured 29/80 or 64% impairment) - Charges Timed Code Treatment Minutes: 27 Total Treatment Time: 47 Procedures billed for this date of service:: hp, ex2 Assessment: Patient progressing well with ROM and strength/pain. He demo full active flexion, abd is ~160 consistently, IR/ER WNL functionally. He demo good progression with tbands against gravity. He is able to maintain L shoulder elevation up to 1 1/2 mins while performing ball on the wall activities. Patient Education: Home Exercise Program, Education of Plan of Care Patient demonstrates compliance with HEP?: Yes Short Term Goals Goal #1: pt report ability to sleep for 4-6 hours without interruption from pain. Goal to be met by: 12/01/17 Progress towards Goal:: Progressing Goal #2: pt demonstrate improved ROM L shld flex 170, abd 140 ER 45 Goal to be met by: 12/01/17 Progress towards Goal:: Met Goal #3: Improve strength L shld 4- to 4/5 with decreased pain. 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
--- NOTE | 2017-12-15 11:02 | RS.OPPTDN ---
Subjective Date of Note: 12/15/17 Visit #: 11 Date of Evaluation: 11/10/17 Payer Source: MEDICARE Treatment Diagnosis: Calcific tendonitis L shld Current Subjective/complaints:: Patient says he has helped working in the yard for the past 2 days. Reports he is having muscle spasms to the shoulder blades and R side of the body while working the L shoulder. He says he continues to have spasms to the L mid trunk along the ribs, but shoulder is not hurting currently. *Precautions: n/a - Heat/Cryotherapy Treatment: Hot Pack (20 mins over the L shoulder in sitting) Interventions - Exercise/Activities/Manual Therapy Exercises/Activities: PROM to the L shoulder all dir in supine. Manual isometrics all dir 2x10, 4# wand for bilateral shoulder flexion and chest press , green tband for pull downs, IR, horizontal abd, ER all x 12 reps. Blue tband in scap retraction and 3# wand for bilateral overhead flexion in standing x 12. Squeezing ball for isometric bilateral IR x 12. Total minutes of Exercise: 33 Manual Therapy: na HOME EXERCISE PROGRAM: pt given written HEP including scapular retraction, shld shrugs, isometric shld flex, ext, abd, add. - Charges Timed Code Treatment Minutes: 33 Total Treatment Time: 53 Procedures billed for this date of service:: hp, ex2 Assessment: Patient demo improved sarahi to stretching and increased strengthening activities. He is experiencing less pain, but continues with intermittent spasms to the L mid trunk/ribs. Patient given progressive tband for home. Patient Education: Home Exercise Program, Education of Plan of Care Patient demonstrates compliance with HEP?: Yes Short Term Goals Goal #1: pt report ability to sleep for 4-6 hours without interruption from pain. Goal to be met by: 12/01/17 Progress towards Goal:: Progressing Goal #2: pt demonstrate improved ROM L shld flex 170, abd 140 ER 45 Goal to be met by: 12/01/17 Progress towards Goal:: Met Goal #3: Improve strength L shld 4- to 4/5 with decreased pain. Goal to be met by: 12/01/17 Progress towards Goal:: Met Goal #4: . 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
--- NOTE | 2017-12-17 12:04 | RS.OPPTDN ---
Subjective Date of Note: 12/17/17 Visit #: 12 Date of Evaluation: 11/10/17 Payer Source: MEDICARE Treatment Diagnosis: Calcific tendonitis L shld Current Subjective/complaints:: Patient says he is feeling good this morning. Reports that his shoulder blade still twitches a lot, but other than that, he is doing well. Reports he is working with [employer] at home with only temporary muscle soreness/fatigue. He reports his shoulder is "nearly normal." *Precautions: n/a Pain Assessment - Pain Description Pain Location: spasms to the L scapula - Heat/Cryotherapy Treatment: Hot Pack (20 mins to the L shoulder/scapula in sitting) Interventions - Exercise/Activities/Manual Therapy Exercises/Activities: PROM to the L shoulder all dir in supine. Manual isometrics all dir 2x10, progressed to 5# wand for bilateral shoulder flexion and chest press, progressed to blue tband for pull downs, IR, horizontal abd, ER all x 12 reps. Blue tband in scap retraction and 3# wand for bilateral overhead flexion in standing x 12. Squeezing ball for isometric bilateral IR x 12. Ball on the wall for clockwise and counter clockwise x 10 each. Ended with wall stretches for flexion and abd x 3. Total minutes of Exercise: 30 Manual Therapy: na HOME EXERCISE PROGRAM: pt given written HEP including scapular retraction, shld shrugs, isometric shld flex, ext, abd, add. - Charges Timed Code Treatment Minutes: 30 Total Treatment Time: 50 Procedures billed for this date of service:: ex2, hp Assessment: Patient demo improved AROM, FLEX to 173 degrees, ABD to 155 degrees (some compensation to 165), gross strength is 4+/5. Patient able to progress with activity in the department with only slight muscle fatigue/soreness. He does have a continuation order on 11/30/17, so he does have 2 more weeks to further work on normalizing ROM actively and strengthen to 5/5 and to improve ability to perform outside work. Patient Education: Home Exercise Program, Education of Plan of Care Patient demonstrates compliance with HEP?: Yes Short Term Goals Goal #1: pt report ability to sleep for 4-6 hours without interruption from pain. Goal to be met by: 12/01/17 Progress towards Goal:: Progressing Goal #2: pt demonstrate improved ROM L shld flex 170, abd 140 ER 45 Goal to be met by: 12/01/17 Progress towards Goal:: Met Goal #3: Improve strength L shld 4- to 4/5 with decreased pain. Goal to be met by: 12/01/17 Progress towards Goal:: Met Goal #4: . 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
--- NOTE | 2017-12-22 15:26 | RS.OPPTDN ---
Subjective Date of Note: 12/22/17 Visit #: 13 Date of Evaluation: 11/10/17 Payer Source: MEDICARE Treatment Diagnosis: Calcific tendonitis L shld Current Subjective/complaints:: Patient says he has been doing well. 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 *Precautions: n/a - Heat/Cryotherapy Treatment: Hot Pack (15 mins to the L shoulder in sitting) Interventions - Exercise/Activities/Manual Therapy Exercises/Activities: PROM to the L shoulder all dir in supine. Manual isometrics all dir 2x10, Continued with 5# wand for bilateral shoulder flexion and chest press, progressed to blue tband for pull downs, IR, horizontal abd, ER all x 12 reps. Blue tband in scap retraction and bilateral shoulder extension, 3# wand for bilateral overhead flexion in standing x 12. UBE x 3 mins forward, 1 retro in standing. Squeezing ball for isometric bilateral IR x 12. Ball on the wall for clockwise and counter clockwise x 10 each. Ended with wall stretches for flexion and abd x 3. Total minutes of Exercise: 35 Manual Therapy: na HOME EXERCISE PROGRAM: pt given written HEP including scapular retraction, shld shrugs, isometric shld flex, ext, abd, add. 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 He does continue with L scapular spasms, but does admit improved L shoulder pain and strength. Patient Education: Body/Joint mechanics, Home Exercise Program, Activity Modification, Education of Plan of Care Patient demonstrates compliance with HEP?: Yes Short Term Goals Goal #1: pt report ability to sleep for 4-6 hours without interruption from pain. Goal to be met by: 12/01/17 Progress towards Goal:: Progressing Comments:: Patient still has difficulty sleeping, but not necessarily due to pain Goal #2: pt demonstrate improved ROM L shld flex 170, abd 140 ER 45 Goal to be met by: 12/01/17 Progress towards Goal:: Met Goal #3: Improve strength L shld 4- to 4/5 with decreased pain. Goal to be met by: 12/01/17 Progress towards Goal:: Met Goal #4: . 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
--- NOTE | 2017-12-22 15:56 | RS.PTSUM ---
Progress Note/Summary Date of Note: 12/10/17 Date of Evaluation: 11/10/17 Number of Visits: 10 Reporting Period for this Progress Note: 11/10/17-12/10/17 Current Complaints/Gains: pt reports he is having decreased pain in the L shld still having intermittent muscle spasms to the L ribs and scapula. pt feels ROM and strength are noticably better. He has also reported that his is able to do more yard work today. Objective Measurements/Presentation: pt L shld AROM flex 160 consistently, PROM 173, abd to 155 AROM. L shld strength 4+/5 grossly. pt has advanced with all mobility and strength. G Codes: carrying, moving and handling current CK. carrying, moving and handling goal CJ Source of G Code Score: UE functional scale - Short Term Goals Goal #1: pt report ability to sleep for 4-6 hours without interruption from pain. Goal to be met by: 12/25/17 Progress towards Goal:: Progressing Goal #2: pt demonstrate improved ROM L shld flex 170, abd 140 ER 45 Goal to be met by: 12/01/17 Progress towards Goal:: Met Goal #3: Improve strength L shld 4- to 4/5 with decreased pain. Goal to be met by: 12/01/17 Progress towards Goal:: Met Goal #4: . 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 pt is progressing toward remaining goals. pt continues with decreased strength, ROM and functional mobility. Summary: Patient has made progress towards goals., Patient demonstrates potential to gain increased function with therapy - Plan Plan: Continue Plan of Care Frequency: 2 X week Duration: 3 weeks PLAN OF CARE EXPIRES ON:: 12/25/17 ORDER # VISITS AND/OR THROUGH DATE: 12/25/17
--- NOTE | 2017-12-24 10:57 | RS.OPPTDN ---
Subjective Date of Note: 12/24/17 Visit #: 14 Date of Evaluation: 11/10/17 Payer Source: MEDICARE Treatment Diagnosis: Calcific tendonitis L shld Current Subjective/complaints:: Patient says he is sore today. 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 Reports the hardest thing he has to do is get into the truck and this is due to his knees, not the L UE. *Precautions: n/a - Heat/Cryotherapy Treatment: Hot Pack (15 mins to the L shoulder in sitting.) Interventions - Exercise/Activities/Manual Therapy Exercises/Activities: PROM to the L shoulder all dir in supine. Manual isometrics all dir 2x10, Continued with 5# wand for bilateral shoulder flexion and chest press, progressed to blue tband for pull downs, IR, horizontal abd, ER all x 12 reps. Blue tband in scap retraction and bilateral shoulder extension, 3# wand for bilateral overhead flexion in standing x 12. UBE x 3 mins forward, 1 retro in standing. Squeezing ball for isometric bilateral IR x 12. Ball on the wall for clockwise and counter clockwise x 10 each. Bouncing ball against the wall and catching x 15. Total minutes of Exercise: 36 Manual Therapy: na HOME EXERCISE PROGRAM: pt given written HEP including scapular retraction, shld shrugs, isometric shld flex, ext, abd, add. - Charges Timed Code Treatment Minutes: 36 Total Treatment Time: 51 Procedures billed for this date of service:: hp, ex2 Assessment: Patient has progressed well with all activities demo improved UE Functional Scale and Active motion to WNL for flexion, and all others WFL. Impairment is now 32% compared to 64% at [facility]. Patient Education: Home Exercise Program, Home Safety, Education of Plan of Care Patient demonstrates compliance with HEP?: Yes Short Term Goals Goal #1: pt report ability to sleep for 4-6 hours without interruption from pain. Goal to be met by: 12/25/17 Progress towards Goal:: Progressing Comments:: Patient admits having chronic issues with this unrelated to shoulder Goal #2: pt demonstrate improved ROM L shld flex 170, abd 140 ER 45 Goal to be met by: 12/01/17 Progress towards Goal:: Met Goal #3: Improve strength L shld 4- to 4/5 with decreased pain. Goal to be met by: 12/01/17 Progress towards Goal:: Met Goal #4: . 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
--- NOTE | 2018-01-08 13:12 | RS.OPPTDC ---
Date of Discharge: 12/24/17 Date of Evaluation: 11/10/17 Number of Visits: 14 Treatment Diagnosis: Calcific tendonitis L shld Current Level of Function: pt demonstrates decreased pain and increased ROM actively to WNL's for flex. and WFL's for abd, ext, ER/IR. Strength 5/5 and increase in UE functional scale from 64% to 32% impairment. pt is independent with HEP. Current Complaints/Gains: py reports pain is significantly decreased and is primarily in L scapula and describes pain as muscle spasms. 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 Pain Assessment - Pain Description Pain Location: L scapula Pain Description: Aching Functional Outcome Measure UE Functional Index: 55 (32%) - G Codes & Severity Modifier G Codes & Modifier: carrying moving and handling dc CJ. carrying moving and handling goal CJ Source of G Code score: UE functional index Observation - Observation Posture: Forward Head, Rounded Shoulders Handedness: Right Gait - Gait Pattern General Gait Pattern Observation: No Deviations/Normal General Range of Motion: BLE and RUE WFL's. LUE shld see current functional status. Muscle Strength: BLE 5/5. BUE 5/5 Interventions - Exercise/Activities/Manual Therapy Exercises/Activities: n/a Manual Therapy: na HOME EXERCISE PROGRAM: pt given written HEP including scapular retraction, shld shrugs, isometric shld flex, ext, abd, add. - Charges Timed Code Treatment Minutes: n/a Total Treatment Time: n/a Procedures billed for this date of service:: n/a Assessment Assessment: pt met STG 2, 3 progressing toward #1. pt reports having long standing difficulty with sleep. pt has met all LTG's. pt to continue HEP Patient Education: Home Exercise Program, Activity Modification, Education of Plan of Care Rehab Potential: Good Short Term Goals Goal #1: pt report ability to sleep for 4-6 hours without interruption from pain. Goal to be met by: 12/25/17 Progress towards Goal:: Progressing Goal #2: pt demonstrate improved ROM L shld flex 170, abd 140 ER 45 Goal to be met by: 12/01/17 Progress towards Goal:: Met Goal #3: Improve strength L shld 4- to 4/5 with decreased pain. Goal to be met by: 12/01/17 Progress towards Goal:: Met Goal #4: . 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
== END 2018-01-07 23:59 ==
PROVIDERS: ATTEND Orthopaedic Surgery
DX: M19.012 Primary osteoarthritis, left shoulder (principal)

== ENCOUNTER 2018-02-01 11:17 | Outpatient (CLI) | payer OTHER ==
[2017-10-27 09:44] VITALS: BMI 39.3
== END 2018-02-01 11:18 | disposition home or self-care (01) ==
LOC: RHC-LAB 11:17
PROVIDERS: ATTEND Emergency Medicine
DX: E78.5 Hyperlipidemia, unspecified (principal); E11.9 Type 2 diabetes mellitus without complications; I10 Essential (primary) hypertension; Z12.5 Encounter for screening for malignant neoplasm of prostate
CPT/HCPCS: 36415; 80053; 80061; 83036; 84443; 85025

== ENCOUNTER 2018-05-04 11:02 | Outpatient (CLI) ==
[2017-10-27 09:44] VITALS: BMI 39.3
--- NOTE | 2018-05-04 11:32 | DI ---
EXAM: Two views of the chest. History: Chest pain. Comparison: Chest radiograph 10/26/2017 Findings: Heart size is normal. No focal consolidation. No appreciable pleural fluid and no pneumo thorax. No acute osseous abnormalities. 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 Ri ght shoulder arthroplasty again seen. Impression: No acute cardiopulmonary process. No change compared to the prior study.
== END 2018-05-04 11:03 | disposition home or self-care (01) ==
LOC: RAD 11:02
PROVIDERS: ATTEND Nurse Practitioner Family
DX: I10 Essential (primary) hypertension (principal); E11.9 Type 2 diabetes mellitus without complications; K21.9 Gastro-esophageal reflux disease without esophagitis; E78.5 Hyperlipidemia, unspecified; R07.89 Other chest pain
CPT/HCPCS: 36415; 80053; 82043; 83036; 85025

== ENCOUNTER 2018-11-19 13:36 | Inpatient (IN) ==
--- NOTE | 2018-11-19 15:20 | CT ---
EXAM: CT BRAIN HISTORY: Dizziness TECHNIQUE: CT brain without intravenous contrast. 5-mm axial sections with Reformations. COMPARISON: 01/31/2016 FINDINGS: Brain is unremarkable without evidence of hemorrhage or large vessel distribution recent ischemic in farction. There is no suggestion of acute hydrocephalus or subdural fluid collection. No mass or ma ss effect. Cranium has no acute finding. Mastoid processes are aerated. The visualized paranasal sinuses are clear. IMPRESSION: No acute intracranial process.
--- NOTE | 2018-11-19 15:38 | DI ---
EXAM: CHEST FRONTAL VIEW HISTORY: Cough. COMPARISON: 05/04/2018 FINDINGS: Heart size is within normal limits. Mild atherosclerotic disease. No acute infiltrates a re seen. No vascular congestion. There is no consolidation, visible pleural fluid or pneumothorax. Bones reveal no acute fracture. Right shoulder prosthesis. IMPRESSION: No acute cardiopulmonary process.
--- NOTE | 2018-11-19 16:41 | US ---
EXAM: Bilateral carotid artery Doppler History: Vertigo. Technique: Multiple sonographic images through the bilateral internal carotid arteries were obtained . Color duplex Doppler was used to interrogate vascular flow. Findings: The right ICA peak systolic velocity is within normal limits measuring 86 cm/sec. The right ICA/cca PSV ratio is normal at 1.1. The right vertebral artery is patent and demonstrates antegrade flow. G ray scale images demonstrate mild plaque buildup within the right internal carotid artery. The left ICA peak systolic velocity is within normal limits measuring 78 cm/sec. The left ICA/cca PS V ratio is normal at 0.90. The left vertebral artery is patent and demonstrates antegrade flow. Gra y scale images demonstrate mild plaque buildup within the left internal carotid artery. Impression: No significant hemodynamic stenosis of the bilateral internal carotid arteries.
--- NOTE | 2018-11-19 16:50 | CT ---
EXAM: CT of the head with contrast History: Dizziness. Comparison: Head CT 11/19/2018 Technique: Multiplanar CT images through the head were obtained without the administration of IV con trast Findings: The visualized paranasal sinuses and mastoid air cells are clear in general. No acute estela varial abnormalities. Intracranially the ventricular and cisternal spaces are normal in size, shape and configuration for a patient of this age. No dominant mass or midline shift. No hydrocephalous. No acute intracranial hemorrhage or abnormal extraaxial fluid collections. No abnormal contrast enhancement. Atherosclero tic vascular calcifications. Impression: Unremarkable exam
[2018-11-19] MEDS ORDERED: NORCO 10-325 PO PRN (17:06)
[2018-11-19] MEDS ORDERED: HUMULIN R SUBCUT STA (17:11)
[2018-11-19 17:59] VITALS: BMI 36.8
[2018-11-19] MEDS ORDERED: VALIUM PO STA (18:13)
[2018-11-19] MEDS ORDERED: ANTIVERT PO STA (18:13)
[2018-11-19] MEDS: SODIUM CHLORIDE 1,000 ML IV SCH (19:36)
[2018-11-19] MEDS ORDERED: AMITRIPTYLINE HCL 100 MG PO SCH (21:00)
[2018-11-19] MEDS ORDERED: POTASSIUM CHLORIDE 10 MEQ PO SCH (21:00)
[2018-11-19] MEDS ORDERED: COREG PO SCH (21:00)
[2018-11-19] MEDS ORDERED: VALIUM PO SCH (21:00)
[2018-11-19] MEDS ORDERED: NON-FORMULARY MEDICATION (Ferrous Sulfate [Iron] 325 MG) PO SCH (21:00)
[2018-11-19] MEDS ORDERED: FERROUS SULFATE ONE (22:33)
[2018-11-19] MEDS ORDERED: MICRO-K CAP ONE (22:33)
[2018-11-19] MEDS ORDERED: ELAVIL PO ONE (22:34)
[2018-11-19] MEDS: NEURONTIN PO SCH (22:39)
[2018-11-19] MEDS: FLEXERIL PO SCH (22:39)
[2018-11-19] MEDS: VALIUM PO SCH (22:39)
[2018-11-19] MEDS: TRIGLIDE PO SCH (22:40)
[2018-11-19] MEDS: ANTIVERT PO SCH (22:40)
[2018-11-19] MEDS: CRESTOR PO SCH (22:40)
[2018-11-20] MEDS: ZANTAC PO SCH ×2 (06:23→16:44)
[2018-11-20] MEDS ORDERED: NON-FORMULARY MEDICATION (Citalopram Hydrobromide [Citalopram Hbr] 40 MG) PO SCH (09:00)
[2018-11-20] MEDS ORDERED: NON-FORMULARY MEDICATION (Esomeprazole Magnesium [Nexium] 40 MG) PO SCH (09:00)
[2018-11-20] MEDS ORDERED: NON-FORMULARY MEDICATION (Duloxetine Hcl [Cymbalta] 60 MG) PO SCH (09:00)
[2018-11-20] MEDS: CYMBALTA PO SCH (09:06)
[2018-11-20] MEDS: NEURONTIN PO SCH ×2 (09:06→20:37)
[2018-11-20] MEDS: PROTONIX PO SCH (09:06)
[2018-11-20] MEDS: SODIUM CHLORIDE 1,000 ML IV SCH (09:06)
[2018-11-20] MEDS: MICRO-K CAP PO SCH ×2 (09:07→16:44)
[2018-11-20] MEDS: CELEXA PO SCH (09:07)
[2018-11-20] MEDS: ASPIRIN EC PO SCH (09:07)
[2018-11-20] MEDS: ANTIVERT PO SCH ×4 (09:07→20:37)
[2018-11-20] MEDS: LASIX TAB PO SCH (09:07)
[2018-11-20] MEDS: VALIUM PO SCH ×4 (09:07→20:36)
[2018-11-20] MEDS: COREG PO SCH ×2 (09:07→16:45)
[2018-11-20] MEDS: FLEXERIL PO SCH ×3 (09:08→20:37)
[2018-11-20] MEDS: ZESTRIL PO SCH (09:08)
[2018-11-20] MEDS: RAPAFLO PO SCH (09:08)
[2018-11-20] MEDS: FERROUS SULFATE PO SCH ×2 (09:09→20:37)
[2018-11-20] MEDS ORDERED: ULTRAM PO PRN (09:24)
[2018-11-20] MEDS: OMEGA-3 FISH OIL PO SCH ×2 (10:15→20:36)
[2018-11-20] MEDS: TRIGLIDE PO SCH (20:36)
[2018-11-20] MEDS: CRESTOR PO SCH (20:37)
[2018-11-20] MEDS ORDERED: [UNRECOGNIZED DRUG - OTHER] PO SCH (21:00)
[2018-11-20] MEDS ORDERED: FATTY ACIDS PO SCH (21:00)
[2018-11-20] MEDS ORDERED: ELAVIL PO SCH (21:00)
[2018-11-20] MEDS ORDERED: OMEGA PO SCH (21:00)
[2018-11-20] MEDS ORDERED: FISH OIL PO SCH (21:00)
[2018-11-20 21:55] VITALS: TEMP 97.4
[2018-11-21 05:16] VITALS: BP 132/78
[2018-11-21] MEDS: PROTONIX PO SCH (05:37)
[2018-11-21] MEDS: ZANTAC PO SCH (05:38)
[2018-11-21] MEDS: LASIX TAB PO SCH (05:38)
[2018-11-21] MEDS: ZESTRIL PO SCH (08:04)
[2018-11-21] MEDS: ASPIRIN EC PO SCH (08:04)
[2018-11-21] MEDS: MICRO-K CAP PO SCH (08:04)
[2018-11-21] MEDS: NEURONTIN PO SCH (08:04)
[2018-11-21] MEDS: CELEXA PO SCH (08:04)
[2018-11-21] MEDS: RAPAFLO PO SCH (08:04)
[2018-11-21] MEDS: FERROUS SULFATE PO SCH (08:04)
[2018-11-21] MEDS: OMEGA-3 FISH OIL PO SCH (08:04)
[2018-11-21] MEDS: CYMBALTA PO SCH (08:05)
[2018-11-21] MEDS: FLEXERIL PO SCH (08:05)
[2018-11-21] MEDS: VALIUM PO SCH (08:05)
[2018-11-21] MEDS: COREG PO SCH (08:05)
[2018-11-21] MEDS: ANTIVERT PO SCH (08:06)
[2018-11-21] MEDS ORDERED: HUMULIN R SUBCUT PRN (09:51)
[2018-11-21] MEDS ORDERED: LIRAGLUTIDE SQ SCH (10:00)
[2018-11-21] MEDS ORDERED: NON-FORMULARY MEDICATION (Canagliflozin [Invokana] 300 MG) PO SCH ×2 (10:00→11:30)
[2018-11-21] MEDS ORDERED: NON-FORMULARY MEDICATION (Metformin Hcl [Metformin Hcl] 1,000 MG) PO SCH (10:00)
[2018-11-21] MEDS ORDERED: LIRAGLUTIDE SUBCUT SCH (11:30)
[2018-11-21] MEDS ORDERED: GLUCOPHAGE PO SCH (11:30)
--- NOTE | 2018-11-22 13:27 | HP ---
DATE OF SERVICE: 11/19/18 (SEEN AND EXAMINED IN ROOM 108 WITH THE PRESENT IN THE ROOM) CHIEF COMPLAINT/HISTORY OF PRESENT ILLNESS: Vertigo type of feeling, ataxia. Duration past 3 days. The patient denies any headache, cough. No congestion. Mild allergy and sinusitis type of problems. No weakness of any of the extremities. Appetite is practically normal. No problems swallowing. Difficult to focus because of the vertigo type of feeling but if he sits still then he is able to focus. More vertigo and dizziness, especially when he is moving. PAST MEDICAL HISTORY: History of diabetes mellitis Dyslipidemia Hypertension Neuoropathy ASHD Depression REVIEW OF SYSTEMS: CONSTITUTIONAL: Fatigue and tired feeling. No night sweats. No malaise, lethargy. No fever or chills. HEENT: Eyes: No visual changes. No eye pain. No eye discharge. ENT: No runny nose. No epistaxis. No sinus pain. No sore throat. No odynophagia. No ear pain. No congestion. RESPIRATORY: No cough, no congestion. Rhinitis type of symptoms. No hemoptysis. No shortness of breath. CARDIOVASCULAR: No angina symptoms. No CHF symptoms. No atypical chest pain for CAD. No palpitations. No PND. No orthopnea. GASTROINTESTINAL: No abdominal pain. No nausea. Appetite practically normal. No diarrhea or constipation. No hematemesis. No hematochezia. GENITOURINARY: No urgency. No frequency. No dysuria. No hematuria. No obstructive symptoms. No discharge. No pain. No significant abnormal bleeding. MUSCULOSKELETAL: No musculoskeletal pain. No joint swelling. No arthritis. TEARER: Mental status is normal. No dysphagia. Moving all extremities. Does all activity of daily living. Ataxia difficulty, balancing himself, room spinning around whenever he lays down for the past three days. PSYCHIATRIC: Not anxious. No depression. No suicidal thoughts. No homicidal thoughts. SKIN: No rash. No lesions. No wounds. ENDOCRINE: No unexplained weight loss. No weight gain. HEMATOLOGIC/LYMPHATIC: No anemia. No purpura. No petechiae. No prolonged or excessive bleeding. No palpable lymph nodes. PERSONAL/FAMILY/SOCIAL HISTORY: Lives with . No alcohol abuse. No drug abuse. MEDICATIONS: (HOME) Dulera Citalopram Aspirin Flexeril Iron Tablets Gabapentin Zantac Victoza Amitriptyline Invokana Coreg Cymbalta Nexium Lasix Lisinopril Metformin Klor-Con Crestor Rapaflo Keflex Diazepam [place] Humalog Malone 3 fatty acids Tramadol ALLERGIES: ATORVASTATIN, FENOFIBRATE PHYSICAL EXAMINATION: VITAL SIGNS: Height 6'1", weight 284 lbs, BMI 37. Temperature 97.1, pulse 81, respiratory rate 16, BP 130/70, pulse ox 92%. HEENT: Head normocephalic, atraumatic. Face is symmetrical. Eyes: Extraocular muscles are intact. Pupils are equal, round and reactive to light and accommodation. Ears: No lesions. Nose appeared normal. Throat: No exudate or erythema. NECK: Supple. No JVD, no carotid bruit. No lymphadenopathy or thyromegaly. LUNGS: Decreased breath sounds. Clear to auscultation. Percussion note normal. Chest symmetrical. HEART: PMI not palpable. On auscultation, S1, S2, no S3. No murmurs. No cyanosis or clubbing. No ascites. Pulses: Dorsalis pedis and posterior tibial pulses +2 bilaterally. ABDOMEN: Soft. Nontender. Bowel sounds active. No CVA tenderness. No mass felt. EXTREMITIES: No pedal edema. Full range of motion of all extremities, equal. TEARER: Normal with deep tendon reflexes, motor and sensory all normal. Mental status is normal. Cranial nerves normal. Romberg is questionable but seems to be positive. Ataxia, inability to balance himself. Power of upper and lower extremity muscles are normal. Babinski's downgoing, normal. SKIN: Not dry. Intact. Turgor - normal. LYMPHATIC: No palpable lymph nodes/no lymphedema. MUSCULOSKELETAL: Normal joints with no swelling. Muscle tone is normal. CT scan of the head is normal with and without contrast both normal. All the CMP , CBC normal. ASSESSMENT: 1. ATAXIA LIKELY VESTIBULAR DYSFUNCTION, DURATION THREE DAYS 2. SINUSITIS/RHINITIS TYPE OF PROBLEM 3. DIABETES MELLITUS 4. HYPERTENSION 5. DYSLIPOIDEMIA 6. NEUROPATHY 7. DEPRESSION PLAN: 1. Start Antivert and Valium together. 2. Rule out any neurological problems, will have neuro checks 3 to [address] telemetry. 4. Continue other medications as before. The patient does not have any black out spells. No focal neurological deficits. TIME SPENT: More than 70 minutes. MTDD
--- NOTE | 2018-11-23 09:22 | DS ---
DATE OF SERVICE: 11/21/18 FINAL DIAGNOSIS: 1. BENIGN VERTIGO 2. HYPERTENSION 3. CORONARY ARTERY DISEASE 4. DYSLIPIDEMIA 5. DIABETES MELLITUS TYPE 2 6. CHRONIC BACK PAIN WITH DEGENERATIVE JOINT DISEASE 7. HYPERTENSION 8. OBESITY 9. ANXIETY 10.DEPRESSION 11.DIABETIC NEUROPATHY DISCHARGE INSTRUCTIONS: DISCHARGE HOME TODAY. CONTINUE YOUR MEDICATIONS LISTED PER NURSING RECONCILIATION. PLEASE CALL THE OFFICE TO SCHEDULE A FOLLOW UP APPOINTMENT WITH DR. MERRILL/EDEN MAR APRN. FOR NEXT WEEK THE NUMBER BELOW HAS BEEN PROVIDED FOR YOU. IF SYMPTOMS ARE WORSENING PLEASE GO TO YOUR NEAREST EMERGENCY ROOM. MEDICATIONS AT DISCHARGE: DULERA 8.8GRAM ONE PUFF INH DAILY PRN MULTIVITAMIN 1 EACH PO DAILY CYCLOBENZAPRINE HCL 10MG PO THREE TIMES A DAY GABAPENTIN 300MG PO TWICE A DAY IRON 325MG PO TWICE A DAY RANITIDINE HCL 150MG PO TWICE A DAY VICTOZA INSULIN 1.8 SQ DAILY ASPIRIN 81MG PO DAILY CYMBALTA 60MG PO DAILY LASIX 40MG PO DAILY METFORMIN 1000MG PO TWICE A DAY NEXIUM 40MG PO DAILY LISINOPRIL 10MG PO DAILY AMITRIPTYLINE 100MG PO BEDTIME FENOFIBRATE 54MG PO BEDTIME KLOR-CON 10MEQ PO TWICE A DAY COREG 6.25MG PO TWICE A DAY RAPAFLO 8MG PO DAILY INVOKANA 300MG PO DAILY CRESTOR 10MG PO BEDTIME OMEGA 3 1000MG TWO TABLETS PO TWICE A DAY HUMALOG 100 UNITS SQ THREE TIMES A DAY NORCO 10-325 ONE EACH PO TWICE A DAY PRN TRAMADOL 50MG PO BEDTIME PRN DIAZEPAM 2MG PO BEDTIME A DAY NEW PRESCRIPTIONS: VALIUM 2MG BY MOUTH EVERY 12 HOURS NEEDED FOR ANXIETY/DIZZINESS ANTIVERT 25MG BY MOUTH THREE TIMES DAILY NEEDED FOR DIZZINESS DIET INSTRUCTIONS: PLEASE CONTINUE AN 1800ADA DIABETIC DIET. ACTIVITY: MAY ALSO RESUME ACTIVITY TOLERATED. SMOKING: FORMER SMOKER DISEASE SPECIFIC EDUCATION: FOLLOWUP MEDICATIONS HOSPITAL COURSE: THIS IS A 63 YEAR WHITE MALE WHO PRESENTED TO THE EMERGENCY ROOM COMPLAINING OF DIZZINESS AND IT STARTED APPROXIMATELY TWO DAYS AGO. HE WAS CONCERNED WITH HIS BLOOD PRESSURE. CT OF THE HEAD WAS NORMAL WELL THE CAROTID SCAN WAS NORMAL. HE WAS ADMITTED FOR FURTHER EVALUATION DUE TO MULTIPLE RISK FACTORS. HE WAS STARED ON ANTIVERT 25MG PO THREE TIMES A DAY PRN ALONG WITH VALIUM 2MG PO FOUR TIMES A DAY FOR THE PAST 18 HOURS. HE STARTS THAT HE HAS BEEN FEELING WELL WITH NO DIZZINESS. HE DOES TAKE MULTIPLE MEDICATIONS. HE HAS SEVERE DIABETES MELLITUS TYPE 2 WHICH IS CONTROLLED WITH MULTIPLE MEDICATIONS, THESE WERE ON HOLD FROM HIS ER ADMISSION. HIS SUGAR HAS BEEN ELEVATED. I BELIEVE ONCE THESE ARE RESTARTED IT WILL BE CONTROLLED AGAIN. HIS MORNING HE STATES THAT HE HAS BEEN UP WALKING A LOT TO THE FRONT OF THE HOSPITAL. HE ISN'T EXPERIENCING ANY DIZZINESS TODAY. HE HAS BEEN EATING 75-100% OF HIS MEALS. VITAL SIGNS ARE CONTROLLED. I DISCUSSED WITH HIM THE NATURE OF VERTIGO AND WHAT TO EXPECT. WE WILL DISCHARGE HIM HOME IN STABLE CONDITION. HE IS TO RESTART ALL HIS DIABETIC MEDICATION WE WILL GIVE HIM ANTIVERT 25MG PO THREE TIMES A DAY PRN WELL VALIUM 2MG PO TWICE A DAY PRN AND WE WILL FOLLOWUP WITH HIM IN THE OFFICE NEXT WEEK. HE IS DISCHARGED IN STABLE CONDITION. TIME SPENT: More than 60 minutes. FLEX
--- NOTE | 2018-11-23 09:45 | PN ---
DATE OF SERVICE: 11/21/18 SUBJECTIVE: The patient was examined while laying in bed. He states that his dizziness has resolved. He has been up and about walking. He started that he walked to the front door of the hospital with no problem. He has given himself a shower. His blood sugar has been elevated but on admission ER held all his oral diabetic medications so we will restart that. CT of the brain was normal along with carotid scan was normal. I do believe that he is having benign vertigo. He would like to go home today. He has been eating 75-100% of his meals and I think that is an acceptable wish. REVIEW OF SYSTEMS: CONSTITUTIONAL: No night sweats.Fatigue. No fever or chills. HEENT: Eyes: No visual changes. No eye pain. No eye discharge. ENT: No runny nose. No epistaxis. No sinus pain. No sore throat. No odynophagia. No congestion. RESPIRATORY: No cough, no congestion. No hemoptysis. No shortness of breath. CARDIOVASCULAR: No angina symptoms. No CHF symptoms. No atypical chest pain for CAD. No palpitations. No PND. No orthopnea. GASTROINTESTINAL: No abdominal pain. No nausea or vomiting. No diarrhea or constipation. No hematemesis. No hematochezia. GENITOURINARY: No urgency. No frequency. No dysuria. No hematuria. No obstructive symptoms. No discharge. No pain. No significant abnormal bleeding. MUSCULOSKELETAL: No musculoskeletal pain; no joint swelling. NEUROLOGICAL: No headache. No neck pain. No syncope. No seizures. No dizziness. PSYCHIATRIC: Not anxious. No depression. No suicidal thoughts. No homicidal thoughts. SKIN: No rash. No lesions. No wounds. ENDOCRINE: No unexplained weight loss. No weight gain. HEMATOLOGIC/LYMPHATIC: No anemia. No purpura. No petechiae. No prolonged or excessive bleeding. No palpable lymph nodes. PHYSICAL EXAMINATION: VITAL SIGNS: Temperature 97.4, heart rate 74, respiratory 18, blood pressure 132/78 and pulse ox 98% on room air. HEENT: Head normocephalic, atraumatic. Eyes: Extraocular muscles are intact. Pupils are equal, round and reactive to light and accommodation. Ears: No lesions. Nose appeared normal. Throat: No exudate or erythema. NECK: Supple. No JVD, no carotid bruit. No lymphadenopathy or thyromegaly. LUNGS: Diminished breath sound. Clear to auscultation. Percussion note normal. Chest symmetrical. HEART: Regular heart rate and rhythm. S1, S2, no S3. No murmurs. No cyanosis or clubbing. No ascites. Pulses: Dorsalis pedis and posterior tibial pulses + 1 to +2 bilaterally. ABDOMEN: Soft. Nontender. Bowel sounds active. No CVA tenderness. No mass felt. EXTREMITIES: No edema. Full range of motion of all extremities, equal. NEUROLOGIC: No focal deficit. Cranial nerves II through XII are grossly intact. No headache, no double vision or headache. SKIN: Not dry. Intact. Turgor - normal. LYMPHATIC: No palpable lymph nodes/no lymphedema. MUSCULOSKELETAL: Normal joints with no swelling. Muscle tone is normal. LABS: Hgb 15.4, hct 46, plt count 158, sodium 135, potassium 4.7, BUN 20, creatinine 0.96, AST 23, ALT 25. ASSESSMENT: 1. Benign Vertigo 2. Hypertension 3. Coronary artery disease 4. Dyslipidemia PLAN: 1. We will discharge home 2. He is to restart his normal diabetic medication 3. Will given him Antivert 25mg three times a day PRN for dizziness 4. Valium 2mg PO twice a day 5. He can followup with us in the office next week He is in stable condition. He has no other complaints. TIME SPENT: More than 30 minutes. Plan and coordination of the patient's care discussed in the presence of nurse. FLEX
== END 2018-11-21 12:24 | disposition home or self-care (01) | DRG 305 ==
LOC: ED 13:36 → MEDSURG A 17:06
PROVIDERS: ADMIT Internal Medicine; ATTEND Internal Medicine
DX: I10 Essential (primary) hypertension (principal); I25.10 Atherosclerotic heart disease of native coronary artery without angina pectoris; E78.5 Hyperlipidemia, unspecified; E66.9 Obesity, unspecified; E11.40 Type 2 diabetes mellitus with diabetic neuropathy, unspecified; M54.9 Dorsalgia, unspecified; M47.9 Spondylosis, unspecified; F41.8 Other specified anxiety disorders; J32.9 Chronic sinusitis, unspecified; R27.0 Ataxia, unspecified
CPT/HCPCS: 36415; 80053; 82550; 82962; 84439; 84443; 84484; 85025; 85610; 85730; 93005; 93010; 99284

== ENCOUNTER 2018-12-21 10:46 | Outpatient (POV) | END 2018-12-21 17:00 | LOC: OUTPT 10:46 | PROVIDERS: ATTEND Otolaryngology | DX: R42 Dizziness and giddiness (principal) | CPT/HCPCS: 92557; 92567 ==

== ENCOUNTER 2019-03-25 15:58 | Emergency (ER) ==
[2019-03-25 16:08] VITALS: BP 137/68; TEMP 98.7; BMI 36.0
--- NOTE | 2019-03-25 16:54 | ED.PDOC ---
General ED Provider: Dr. MEAGAN ACEVEDO Chief Complaint: Hand Pain/Injury Stated Complaint: DOG BITE LEFT HAND PET DOG SHOTS FOR THE DOG ARE UTD Time Seen by Physician: 17:00 (SEE PHOTOS) Mode of Arrival: Walk-In Information Source: Patient Exam Limitations: No limitations Primary Care Provider: AIDA MERRILL Nursing and Triage Documentation Reviewed and Agree: Yes Does patient meet sepsis criteria?: No If yes, has appropriate treatment been initiated?: No System Inflammatory Response Syndrome: Not Applicable Sepsis Protocol: For patient's 13 years and over: Temp is 96.8 and below OR 101 and greater Pulse >90 BPM Resp >20/minute Acutely Altered Mental Status Are patient's symptoms suggestive of a new infection, such as: -Pneumonia -Skin, Soft Tissue -Endocarditis -UTI -Bone, Joint Infection -Implantable Device -Acute Abdominal Infection -Wound Infection -Meningitis -Blood Stream Catheter Infection -Unknown Trauma/Injury Complaint Exam - Bite Injury Complaint/Exam Location of Bite: LEFT HAD SEE PHOTOS Bite Occured: 40 MIN AGO Symptoms Are: Still present Type of Bite: Reports: Pet animal Animal Immunized: Reports: Yes Initial Severity: Mild Current Severity: Mild Character: Reports: Puncture Aggravating: Reports: None Alleviating: Reports: None Associated Signs and Symptoms: Denies: Fever, Erythema, Drainage, Swelling, Lymphadenopathy, Numbness, Tingling, Limited ROM Related History: Reports: Unprovoked Animal Available for Observation: Yes (OWN PET) Animal Control Notified: No Infection/Sepsis Risk Factors: Present: None Bite Findings: Present: Erythema, Swelling Wound Description: Present: Contusion Drainage: Present: None Differential Diagnoses: Laceration Review of Systems - Review Of Systems Constitutional: Reports: No symptoms Eyes: Reports: No symptoms Ears, Nose, Mouth, Throat: Reports: No symptoms Respiratory: Reports: No symptoms Cardiac: Reports: No symptoms GI: Reports: No symptoms : Reports: No symptoms Musculoskeletal: Reports: No symptoms Skin: Reports: No symptoms Neurological: Reports: No symptoms Endocrine: Reports: No symptoms Hematologic/Lymphatic: Reports: No symptoms All Other Systems: Reviewed and Negative Past Medical History - Past Medical History Previously Healthy: Yes Endocrine: Reports: DM 2, Dyslipidemia Cardiovascular: Reports: Hypertension Respiratory: Reports: COPD Hematological: Reports: None Gastrointestinal: Reports: GERD Genitourinary: Reports: None Neuro/Psych: Reports: CVA (uncertain had sudden loss of hearing right ear over 2 years ago presumed stroke), Depression, Other (deaf rt ear) Musculoskeletal: Reports: Arthritis (right shoulder prosthesis), Back Pain (chr back pain, deaf rt ear) Cancer: Reports: None Other Pertinent Past Medical History: history staph in right shoulder- continues on antibiotics - Surgical History General Surgical History: Reports: Appendectomy, Orthopedic (RT SHOULDER SURGERY ) - Family History Family History: Reports: Unknown - Social History Smoking Status: Former smoker Hx Substance Use: No Alcohol Screening: Occasionally - Immunizations Tetanus Shot up to Date: No Physical Exam - Physical Exam Appearance: Well-appearing, No pain distress, Well-nourished Eyes: LILLY, EOMI, Conjunctiva clear ENT: Ears normal, Nose normal, Oropharynx normal Respiratory: Airway patent, Breath sounds clear, Breath sounds equal, Respirations nonlabored Cardiovascular: RRR, Pulses normal, No rub, No murmur GI/: Soft, Nontender, No masses, Bowel sounds normal, No Organomegaly Musculoskeletal: Normal strength, ROM intact, No edema, No calf tenderness Skin: Warm, Dry, Normal color Neurological: Sensation intact, Motor intact, Reflexes intact, Cranial nerves intact, Alert, Oriented Psychiatric: Affect appropriate, Mood appropriate Critical Care Note - Critical Care Note Total Time (mins): 0 Course - Course Vital Signs: Temp Pulse Resp BP Pulse Ox 03/25/19 15:59 98.7 F 86 18 137/68 94 L Departure - Departure Time of Disposition: 16:55 Disposition: HOME SELF-CARE Discharge Problem: Injury of hand, Hand pain Dog bite of left hand Qualifiers: Encounter type: initial encounter Qualified Code(s): S61.452A - Open bite of left hand, initial encounter; W54.0XXA - Bitten by dog, initial encounter Instructions: Animal Bite (ED) Condition: Good Pt referred to PMD for follow-up: Yes IPMP verified?: No Additional Instructions: Please call your Family Physician as soon as possible to schedule a follow-up appointment. Allergies/Adverse Reactions: Allergies atorvastatin calcium [From Lipitor] Adverse Reaction (Verified 03/25/19 16:39) fenofibrate nanocrystallized [From Tricor] Adverse Reaction (Verified 03/25/19 16:39) fenofibrate,micronized [From Tricor] Adverse Reaction (Verified 03/25/19 16:39) Home Medications: Ambulatory Orders Mometasone/Formoterol [Dulera 100 Mcg/5 Mcg Inhaler] 1 puff INH DAILY PRN Multivitamin [Multi-Vitamin Daily] 1 each PO DAILY 01/19/17 Insulin Lispro Protamin/Lispro [Humalog Mix 50-50 Kwikpen] 100 units SQ TID Crary-3 Fatty Acids/Fish Oil [Crary 3 1,000 Mg Softgel] 2 each PO BID #3 Diazepam [Valium] 2 mg PO Q12H PRN #30 tablet 11/21/18 Meclizine HCl [Antivert] 25 mg PO TID PRN #30 tablet 11/21/18
[2019-03-25] MEDS ORDERED: TENIVAC IM ONE (16:56)
== END 2019-03-25 17:19 | disposition home or self-care (01) ==
LOC: ED 15:58
DX: S61.452A Open bite of left hand, initial encounter (principal); W54.0XXA Bitten by dog, initial encounter
CPT/HCPCS: 90471; 90714; 99282

== ENCOUNTER 2025-07-07 12:44 | Observation (INO) ==
[2025-07-07 13:35] LABS: IMMATURE GRANULOCYTE # (AUTO) 0.0 (0.0-1.0); IMMATURE GRANULOCYTE % (AUTO) 0.4 % (0.0-5.0); RDW COEFFICIENT OF VARIATION 13.2 % (11.6-14.8)
[2025-07-07] MEDS: SODIUM CHLORIDE 1,000 ML IV ONE (13:35)
[2025-07-07 13:42] LABS: GLUCOSE, URINE (UA) 3+ (NEGATIVE); LEUKOCYTE ESTERASE ,URINE Negative (NEGATIVE); URINE, BLOOD Negative (NEGATIVE)
[2025-07-07 13:48] LABS: CREATININE 0.97 mg/dL (0.60-1.10)
[2025-07-07] MEDS: CALCIUM GLUCONATE 1,000 MG/100 ML NS 1,000 MG/100 ML BAG IV ONE (14:21)
--- NOTE | 2025-07-07 14:21 | CT ---
EXAMINATION: HEAD CT WITHOUT CONTRAST HISTORY: closed head injury, parietal scalp TECHNIQUE: Noncontrast CT of the brain was performed with images acquired from skull base to vertex. 2-D coronal and sagittal reformatted images were obtained from the axial source images. Contrast Dose: None. CT Dose Reduction Techniques Performed: Yes. COMPARISON: None. FINDINGS: Topogram demonstrates No significant abnormality. Intraparenchymal hemorrhage: None. Parenchyma: Mild chronic small vessel ischemic changes. No mass effect or midline shift. Extra-axial spaces and basal cisterns: Unremarkable Ventricles: No hydrocephalus. Paranasal sinuses and mastoid air cells: Visualized portions of paranasal sinuses are clear. Mastoid air cells are clear. Orbits: Bilateral pseudophakia Sella/Skull Base: Unremarkable Bones/soft tissues: No acute osseous findings. No discrete acute soft tissue findings. IMPRESSION: No acute intracranial abnormality. All CT scans are performed using dose optimization techniques as appropriate to the performed exam and include at least one of the following: Automated exposure control, adjustment of the mA and/or kV according to size, and the use of iterative reconstruction technique.
--- NOTE | 2025-07-07 14:50 | ED.PDOC ---
General [facility] ED Provider: Dr. SHASHI LONG MD Chief Complaint: Dizziness Stated Complaint: Patient is a 69-year-old male who is presenting to the emergency department for evaluation of multiple complaints. Accompanied by his who assist in providing history. She states that the patient has been having recurrent falls over the last 4 to 5 days with bilateral lower extremity weakness. Uses a walker at baseline but his legs bilaterally have been too weak to keep himself up at times. He has had several falls. He did hit his head yesterday evening over the forehead although he did not have any loss of consciousness when this occurred. She does also state that the patient appears to be slightly confused and is having a hard time answering questions but this has been a month-long if not a year-long developing process. She denies noticed any facial asymmetry or focal neurologic deficits. Time Seen by Provider: 07/07/25 13:37 Mode of Arrival: Wheelchair Information Source: Patient and Family Exam Limitations: No limitations Primary Care Provider: DAMI MOSS APRN Nursing and Triage Documentation Reviewed and Agree: Yes Opioid Naive vs. Tolerant What is Opioid Naive?: *Opioid Naive implies the patient is not already taking opioids or not chronically receiving opioids on a daily basis. *PRN dosing is not "usually" associated with tolerance. *Patients are at higher risk of over-sedation and aspiration. What is Opioid Tolerant?: *Opioid Tolerance implies less than the expected response to an opioid. *Acquired tolerance is defined by the patient taking 60mg of oral morphine daily (or equianalgesic dose of another opioid) for 1 week or more. *Often associated with chronic pain. *May take more than usual dose to achieve desired pain control. Review of Systems Review Of Systems Constitutional: Reports No symptoms Respiratory: Reports No symptoms Cardiac: Reports No symptoms GI: Reports No symptoms : Reports No symptoms Musculoskeletal: Reports No symptoms Neurological: Reports Weakness; Denies Headache or Numbness [facility] Medical History Sensorineural hearing loss (SNHL), bilateral hearing test completed in office by Dr. Alcala. Right: no residual hearing indicated. Left- Normal-1khz sloping to severe snhl. H90.3 - Sensorineural hearing loss, bilateral (ICD-10) Family history of colon cancer father Z80.0 - Family history of malignant neoplasm of digestive organs (ICD-10) Rotator cuff arthropathy of left shoulder M12.812 - Other specific arthropathies, not elsewhere classified, left shoulder (ICD-10) Personal history of musculoskeletal disorder Back injury Z87.39 - Personal history of other diseases of the musculoskeletal system and connective tissue (ICD-10) Joint stiffness M25.60 - STIFFNESS OF UNSPECIFIED JOINT, NOT ELSEWHERE CLASSIFIED (ICD-10) Calcific tendonitis of left shoulder M75.32 - CALCIFIC TENDINITIS OF LEFT SHOULDER (ICD-10) Wound infection after surgery T81.4XXA - INFECTION FOLLOWING A PROCEDURE, INITIAL ENCOUNTER (ICD-10) Right clavicle fracture S42.001A - FRACTURE OF UNSP PART OF RIGHT CLAVICLE, INIT FOR CLOS FX (ICD- 10) Family History Mother Diabetes Hypertension COPD (chronic obstructive pulmonary disease) Social History Smoking and tobacco status: Former smoker Tobacco: How many years used: 20 Second hand smoke exposure: No Smoking risk assessment performed: No Alcohol intake: never Substance use type: does not use Special jackie needs: No Agree to transfusion: Yes Adopted: No Caregiver/support person: No Foster care: No Household members: spouse Housing: house Marital status: M Lives independently: Yes Daycare: no daycare Number of children: 1 Financial difficulty paying for basics: not very hard service: No long term: No Current occupational status: retired History of recent travel: No Sexually active: No Do you think of yourself as: straight/heterosexual Current gender identity: male Seatbelt use: always Helmet use: No Drives intoxicated or rides with intoxicated stock car driver: No Water heater temperature set < 120 degrees: Yes Working smoke detector in home: Yes Fire extinguisher in home: Yes Carbon monoxide detector in home: Yes Surgical History History of musculoskeletal system surgery Right shoulder Z98.890 - Other specified postprocedural states (ICD-10) Status post cholecystectomy Z90.49 - Acquired absence of other specified parts of digestive tract (ICD- 10) Status post appendectomy Z90.49 - Acquired absence of other specified parts of digestive tract (ICD- 10) Physical Exam Physical Exam Appearance: Reports No pain distress Ill-appearing: None Pain Distress: None Eyes: Reports Conjunctiva clear Neck: Supple Respiratory: Reports Airway patent, Breath sounds clear and Breath sounds equal Cardiovascular: Reports RRR and Pulses normal GI/: Reports Soft and Nontender Musculoskeletal: Reports Normal strength (Patient is able to perform bilateral straight leg raise test for 10 seconds. He does have 5 out of 5 strength with dorsiflexion and plantarflexion. He is however unable to stand up without both legs buckling.) Skin: Reports Warm and Dry Neurological: Reports Sensation intact, Motor intact, Cranial nerves intact, Alert and Oriented (Patient is oriented to self, month, and location although while in triage she was not aware of the month) Interpretation EKG Interpretation EKG Interpretation By: ED Physician Time of EKG #1: 13:54 Rate: Normal Rhythm: Sinus Ectopy: None [place]: NL ST Segment: Normal Interpretation: Sinus rhythm with fusion complexes and premature atrial complexes Radiology Interpretation Radiology Interpretation By: ED Physician Radiology Results: Negative Exam Interpreted: CXR Xray Comments: Negative for any consolidations Physician Progress Note Physician Progress Note: Patient is a 69-year-old male who is presenting to the emergency department for evaluation of bilateral lower extremity weakness Overall favor that patient's symptoms may be secondary to dehydration verse electrolyte abnormality versus general deconditioning versus UTI. Denies any focal neurologic deficits that would suggest stroke as an underlying etiology. No history of urinary continence that would suggest NPH although it is certainly possible given his age. We did obtain a head CT which did not show any evidence of acute intracranial pathology per my interpretation. No findings of be concerning for NPH or hemorrhage. Urinalysis negative for any signs of infection. Troponin was also obtained to ensure there is no underlying cardiac etiology of his generalized weakness and this was negative as was his ECG that is detailed in the interpretation section. Therefore not concern for ACS at this time. There was a slight hyponatremia which will be addressed by his normal saline fluid bolus for suspected dehydration given his extremely dry mucosa. There was also a very significantly decreased calcium level of 5.5 which will warrant inpatient admission for further workup of possible underlying etiology as well as electrolyte correction. Should be noted there was no QTc prolongation evident on his ECG. As for his episodes of slight confusion, this appears to be chronic in nature when speaking with the as well as reviewing his prior medical records. No metabolic etiology for it found on today's workup. Head CT was also negative for any acute pathology that could explain this as well. Patient will be admitted to the hospital as inpatient with telemetry for his severe acute hypocalcemia as well as suspected deconditioning and dehydration. Case was discussed with the hospitalist and they agreed to take to their service. Family was also amenable to this plan. 1. Severe acute hypocalcemia 2. Bilateral lower extremity weakness, secondary to either #1 or deconditioning 3. Acute dehydration Course Course 07/07/25 13:18 07/07/25 15:02 Orders, Labs, Meds: Lab Review 07/07/25 07/07/25 07/07/25 13:07 13:18 15:02 WBC 6.93 RBC 4.87 Hgb 14.3 Hct 41.4 L MCV 85.0 MCH 29.4 MCHC 34.5 RDW Coeff of [place] 13.2 Plt Count 155 Immature Gran % (Auto) 0.4 Neut % (Auto) 62.8 Lymph % (Auto) 27.0 [place] % (Auto) 7.8 Eos % (Auto) 1.6 Baso % (Auto) 0.4 Neut # (Auto) 4.4 Lymph # (Auto) 1.9 [place] # (Auto) 0.5 Eos # (Auto) 0.1 Baso # (Auto) 0.0 Immature Gran # (Auto) 0.0 Sodium 132.2 L 134.0 L Potassium 4.27 4.40 Chloride 96.6 L 100.0 Carbon Dioxide 27.8 28.0 Anion Gap 12.07 10.40 BUN 15.2 14.0 Creatinine 0.97 1.10 Estimated GFR (MDRD) 77.00 66.00 BUN/Creatinine Ratio 15.67 12.72 Glucose 378.9 H 331.0 H Calcium 5.48 L* 9.40 Magnesium 1.76 Total Bilirubin 1.35 H AST 34.2 ALT 34.6 Alkaline Phosphatase 86.6 Troponin I < 0.012 Total Protein 6.74 Albumin 4.26 Globulin 2.48 Albumin/Globulin Ratio 1.71 Urine Color Light Urine Clarity Clear Urine pH 7.0 Ur Specific [place] 1.010 Urine Protein Negative Urine Glucose (UA) 3+ H Urine Ketones Negative Urine Blood Negative Urine Nitrite Negative Urine Bilirubin Negative Urine Urobilinogen 0.2 Ur Leukocyte Esterase Negative Orders Category Date Time Status EKG-(ED & IP/OBS ONLY) Stat CARDIO 07/07/25 13:23 Completed ACTIVITY .Up With Assistance CARE 07/07/25 14:52 Active INTAKE & OUTPUT Q8HR CARE 07/07/25 14:52 Active IP: INSERT SALINE LOCK ONCE CARE 07/07/25 14:50 Active VITAL SIGNS Q4HR CARE 07/07/25 14:52 Active CARDIAC DIET DIETARY 07/07/25 Dinner Ordered BMP [BASIC METABOLIC PANEL] Stat LAB 07/07/25 15:02 Completed CBC W/ AUTO DIFF DAILY@0600 LAB 07/08/25 06:00 Ordered CBC W/ AUTO DIFF DAILY@0600 LAB 07/09/25 06:00 Ordered CBC W/ AUTO DIFF Stat LAB 07/07/25 13:18 Completed CMP [COMPREHENSIVE METABOLIC PANEL] Stat LAB 07/07/25 13:18 Completed COMPREHENSIVE METABOLIC PANEL DAILY@0600 LAB 07/08/25 06:00 Ordered COMPREHENSIVE METABOLIC PANEL DAILY@0600 LAB 07/09/25 06:00 Ordered MAGNESIUM Stat LAB 07/07/25 13:18 Completed TROPONIN I Stat LAB 07/07/25 13:18 Completed URINALYSIS C & S IF INDICATED Stat LAB 07/07/25 13:07 Completed Acetaminophen [Tylenol] Meds 07/07/25 14:52 Active 650 mg PO Q4H PRN Calcium Gluc in NaCl, Iso-Osm [Calcium Gluconate 1,000 Meds 07/07/25 14:01 Discontinued mg/100 ml Ns] 1,000 mg in 100 ml IV ONCE Ondansetron HCl/Pf [Zofran Sdv] Meds 07/07/25 14:52 Active 4 mg IVP Q6H PRN Sodium Chloride 0.9% [Sodium Chloride] 1,000 ml Meds 07/07/25 13:28 Discontinued IV BOLUS RESUSCITATION STATUS Routine OTHERS 07/07/25 14:[address] HEAD W/O CONTRAST Stat RADS 07/07/25 13:23 Completed CXR [CHEST, 1V AP ONLY] Stat RADS 07/07/25 13:23 Taken Medications Generic Name Dose Route Start Last Admin Trade Name Freq PRN Reason Stop Dose Admin Acetaminophen 650 mg 07/07/25 14:52 Acetaminophen 325 Mg Tablet PO Q4H PRN Mild Pain Ondansetron HCl 4 mg 11/28/25 14:52 Ondansetron Hcl/Pf 4 Mg/2 Ml Sdv IVP Q6H PRN Nausea / Vomiting Discontinued Medications Generic Name Dose Route Start Last Admin Trade Name Freq PRN Reason Stop Dose Admin Sodium Chloride 1,000 mls @ 1,000 mls/hr 07/07/25 13:28 07/07/25 15:28 Sodium Chloride IV 07/07/25 14:27 Infused BOLUS ONE Infusion CALCIUM GLUC IN NACL, ISO-OSM 1,000 mg in 100 mls @ 400 mls/hr 07/07/25 14:01 07/07/25 14:21 Calcium Gluconate 1,000 Mg/100 Ml Ns IV 07/07/25 14:15 400 mls/hr ONCE ONE Administration Vital Signs: Temp Pulse Resp BP Pulse Ox 07/07/25 12:48 98.3 F 100 20 138/88 94 L Discharge Plan Discharge Patient Disposition: ADMITTED INPATIENT Discharge Problem: Hypocalcemia Did you review [place] APPEALS EXAMINER for ALL controlled substances?: Not Applicable ED Provider: SHASHI LONG Condition: Stable
[2025-07-07] MEDS ORDERED: TYLENOL PO PRN (14:52)
[2025-07-07] MEDS ORDERED: ZOFRAN SDV IVP PRN (14:52)
--- NOTE | 2025-07-07 14:55 | PCM ---
Date of Service Date Seen by Provider: 07/07/25 Time Seen by Provider: 13:00 Admit Day/Time Admission Date: 07/07/25 Admission Time: 14:50 Reason for Admission Chief Complaint: HYPOCALCEMIA, WEAKNESS Hospital Provider Hospital Provider: Primitivo Coyle PA-C, [facility] Primary Care Physician Primary Care Physician: DAMI MOSS APRN History of Present Illness History of Present Illness: Patient is a 69-year-old male from home with past medical history of hypertension, GERD, diabetes, hyperlipidemia, CKD who presents to the ER with for concerns of confusion and weakness and falls. provides most of the history. She states for the last 5 or so days he has been more confused and falling frequently to the point he has multiple scabs and bruises on him. She states today she found him on the porch naked and had fallen. She states last night he was talking about going outside and changing a tire. She states normally he might be a little forgetful or get mixed up easily but not like this. In the ER he was find to be hypocalcemic with a calcium of 5.48. It is historically normal. Sodium mildly low. Otherwise normal workup. CT head negative. Urinalysis negative. He was given 1 g of calcium gluconate. EKG did not show any QT prolongation. Will admit to [facility]. The only other associated symptoms they could think of was that he did have diarrhea for several days last week but it has since resolved. Case Discussed With Case Discussed With: Patient's case was discussed with the ER Physicians, Dr. Barney. [facility] Medical History Sensorineural hearing loss (SNHL), bilateral hearing test completed in office by Dr. Alcala. Right: no residual hearing indicated. Left- Normal-1khz sloping to severe snhl. H90.3 - Sensorineural hearing loss, bilateral (ICD-10) Family history of colon cancer father Z80.0 - Family history of malignant neoplasm of digestive organs (ICD-10) Rotator cuff arthropathy of left shoulder M12.812 - Other specific arthropathies, not elsewhere classified, left shoulder (ICD-10) Personal history of musculoskeletal disorder Back injury Z87.39 - Personal history of other diseases of the musculoskeletal system and connective tissue (ICD-10) Joint stiffness M25.60 - STIFFNESS OF UNSPECIFIED JOINT, NOT ELSEWHERE CLASSIFIED (ICD-10) Calcific tendonitis of left shoulder M75.32 - CALCIFIC TENDINITIS OF LEFT SHOULDER (ICD-10) Wound infection after surgery T81.4XXA - INFECTION FOLLOWING A PROCEDURE, INITIAL ENCOUNTER (ICD-10) Right clavicle fracture S42.001A - FRACTURE OF UNSP PART OF RIGHT CLAVICLE, INIT FOR CLOS FX (ICD-10 ) Surgical History History of musculoskeletal system surgery Right shoulder Z98.890 - Other specified postprocedural states (ICD-10) Status post cholecystectomy Z90.49 - Acquired absence of other specified parts of digestive tract (ICD- 10) Status post appendectomy Z90.49 - Acquired absence of other specified parts of digestive tract (ICD- 10) Family History Mother Diabetes Hypertension COPD (chronic obstructive pulmonary disease) Social History Smoking and tobacco status: Former smoker Tobacco: How many years used: 20 Second hand smoke exposure: No Smoking risk assessment performed: No Alcohol intake: never Substance use type: does not use Special jackie needs: No Agree to transfusion: Yes Adopted: No Caregiver/support person: No Foster care: No Household members: spouse Housing: house Marital status: M Lives independently: Yes Daycare: no daycare Number of children: 1 Financial difficulty paying for basics: not very hard service: No penitentiary: No Current occupational status: retired History of recent travel: No Sexually active: No Do you think of yourself as: straight/heterosexual Current gender identity: male Seatbelt use: always Helmet use: No Drives intoxicated or rides with intoxicated 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 assistant: No Water heater temperature set < 120 degrees: Yes Working smoke detector in home: Yes Fire extinguisher in home: Yes Carbon monoxide detector in home: Yes Allergies Allergies Allergy/AdvReac Type Severity Reaction Status Date / Time dapagliflozin (From Farxiga) Allergy Rash Verified 07/07/25 16:13 empagliflozin (From Allergy Rash Verified 07/07/25 16:13 Jardiance) Current Medications Home Medications Acetaminophen (Acetaminophen 325 Mg Tablet) 650 mg PO Q4H PRN PRN Reason: Mild Pain Hydrocodone Bitart/Acetaminophen (Hydrocodone Bit/Acetaminophen 10/325 Mg Tablet) 1 tab PO BID PRN PRN Reason: MODERATE PAIN Amitriptyline HCl (Amitriptyline Hcl 25 Mg Tablet) 100 mg PO BEDTIME [facility] Last Admin: 07/07/25 20:02 Dose: 100 mg Aspirin (Aspirin 81 Mg Tablet.) 81 mg PO DAILYWM2 [facility] Last Admin: 07/08/25 09:31 Dose: 81 mg Carvedilol (Carvedilol 6.25 Mg Tablet) 6.25 mg PO BIDWM2 [facility] Last Admin: 07/08/25 09:31 Dose: 6.25 mg Cyclobenzaprine HCl (Cyclobenzaprine Hcl 10 Mg Tablet) 10 mg PO BEDTIME [facility] Last Admin: 07/07/25 20:03 Dose: 10 mg Dextrose (Dextrose 50 % In Water 50 Ml Disp.Syrin) 50 ml IVP ONCE PRN; Protocol PRN Reason: Unconscious Hypoglycemia Diazepam (Diazepam 2 Mg Tablet) 2 mg PO BID PRN PRN Reason: anxiety Last Admin: 07/07/25 21:52 Dose: 2 mg Duloxetine HCl (Duloxetine Hcl 30 Mg Capsule.) 60 mg PO DAILY [facility] Last Admin: 07/08/25 09:31 Dose: 60 mg Fenofibrate (Fenofibrate 160 Mg Tablet) 160 mg PO DAILY [facility] Last Admin: 07/08/25 09:32 Dose: 160 mg Ferrous Sulfate (Ferrous Sulfate 324 Mg Tablet.) 324 mg PO BIDWM2 [facility] Last Admin: 07/08/25 09:31 Dose: 324 mg Furosemide (Furosemide 40 Mg Tablet) 40 mg PO QDAC2 [facility] Last Admin: 07/08/25 06:11 Dose: 40 mg Gabapentin (Gabapentin 300 Mg Capsule) 300 mg PO 2XD [facility] Last Admin: 07/08/25 09:32 Dose: 300 mg Insulin Glargine (Insulin Glargine,Hum.Rec.Anlog 100 Units/Ml) 70 unit SUBCUT DAILY [facility] Last Admin: 07/08/25 09:32 Dose: 70 unit Insulin Human Lispro (Insulin Lispro 100 Unit/Ml (10 Ml Vial)) 0 unit SUBCUT PRN PRN; Protocol PRN Reason: Hyperglycemia Last Admin: 07/08/25 06:23 Dose: 5 unit Lisinopril (Lisinopril 10 Mg Tablet) 10 mg PO DAILY [facility] Last Admin: 07/08/25 09:31 Dose: 10 mg Ondansetron HCl (Ondansetron Hcl/Pf 4 Mg/2 Ml Sdv) 4 mg IVP Q6H PRN PRN Reason: Nausea / Vomiting Pantoprazole Sodium (Pantoprazole Sodium 40 Mg Tablet.Dr) 40 mg PO QDAC2 [facility] Last Admin: 07/08/25 06:11 Dose: 40 mg Potassium Chloride (Potassium Chloride 20 Meq Tab) 20 meq PO DAILYWM2 [facility] Last Admin: 07/08/25 09:32 Dose: 20 meq Rosuvastatin Calcium (Rosuvastatin Calcium 10 Mg Tablet) 40 mg PO DAILY [facility] Last Admin: 07/08/25 09:31 Dose: 40 mg Silodosin (Silodosin 8 Mg Capsule) 8 mg PO DAILY [facility] Last Admin: 07/08/25 09:31 Dose: 8 mg potassium chloride 10 mEq tablet,extended release 20 meq (2 x 10 mEq) PO QDAY #180 tabs 11/03/23 [Rx Confirmed 07/07/25] aspirin 81 mg tablet,delayed release 81 mg PO DAILY #90 tabs 03/13/25 [Rx Confirmed 07/07/25] clotrimazole-betamethasone 1 %-0.05 % topical cream 1 applic topical 2XD #15 grams 03/13/25 [Rx Confirmed 07/07/25] omega-3 acid ethyl esters 1 gram capsule 2 cap PO 2XD #360 caps 03/13/25 [Rx Confirmed 07/07/25] pen needle, diabetic 31 gauge x 3/16" #100 inserts 03/20/25 [Rx Confirmed 07/07/25] semaglutide 2 mg/dose (8 mg/3 mL) subcutaneous pen injector (Ozempic) 2 mg (0.75 mL) subcut WEEKLY #3 mL 04/18/25 [Rx Confirmed 07/07/25] Toujeo Max U-300 SoloStar 300 unit/mL (3 mL) subcutaneous insulin pen (insulin glargine U-300 conc) 94 unit (0.3133 mL) subcut DAILY #6 mL 04/26/25 [Rx Confirmed 07/07/25] Humalog KwikPen Insulin 100 unit/mL subcutaneous (insulin lispro) 36 unit (0.36 mL) subcut 3XD #110 mL 05/30/25 [Rx Confirmed 07/07/25] diazepam 2 mg tablet 2 mg PO BID 30 days #60 tab-caps 06/05/25 [Rx Confirmed 07/07/25] esomeprazole magnesium 40 mg capsule,delayed release 40 mg PO DAILY #90 caps 06/05/25 [Rx Confirmed 07/07/25] cyclobenzaprine 10 mg tablet 10 mg PO BEDTIME #30 tabs 06/12/25 [Rx Confirmed 07/07/25] carvedilol 6.25 mg tablet 6.25 mg PO 2XD #180 tabs 06/20/25 [Rx Confirmed 07/07/25] duloxetine 60 mg capsule,delayed release 60 mg PO DAILY #90 caps 06/20/25 [Rx Confirmed 07/07/25] ferrous sulfate 325 mg (65 mg iron) tablet (FeroSul) 325 mg PO 2XD #180 tabs 06/20/25 [Rx Confirmed 07/07/25] furosemide 40 mg tablet 40 mg PO DAILY #90 tabs 06/20/25 [Rx Confirmed 07/07/25] gabapentin 300 mg capsule 300 mg PO 2XD #180 caps 06/20/25 [Rx Confirmed 07/07/25] lisinopril 10 mg tablet 10 mg PO DAILY #90 tabs 06/20/25 [Rx Confirmed 07/07/25] metformin 1,000 mg tablet 1,000 mg PO 2XD #180 tabs 06/20/25 [Rx Confirmed 07/07/25] amitriptyline 100 mg tablet 100 mg PO BEDTIME #90 tabs 06/26/25 [Rx Confirmed 07/07/25] silodosin 8 mg capsule 8 mg PO DAILY #90 caps 06/26/25 [Rx Confirmed 07/07/25] fenofibrate nanocrystallized 145 mg tablet 145 mg PO BEDTIME 07/07/25 [History Confirmed 07/07/25] hydrocodone 10 mg-acetaminophen 325 mg tablet 1 tab PO BID PRN pain 07/07/25 [History Confirmed 07/07/25] rosuvastatin 40 mg tablet 40 mg PO BEDTIME 07/07/25 [History Confirmed 07/07/25] tramadol 50 mg tablet 50 mg PO BEDTIME 07/07/25 [History Confirmed 07/07/25] Opioid Naive vs. Tolerant Does Patient Take Opioids?: Yes Is Patient Opioid Naive?: No What is Opioid Naive?: *Opioid Naive implies the patient is not already taking opioids or not chronically receiving opioids on a daily basis. *PRN dosing is not "usually" associated with tolerance. *Patients are at higher risk of over-sedation and aspiration. Is Patient Opioid Tolerant?: No What is Opioid Tolerant?: *Opioid Tolerance implies less than the expected response to an opioid. *Acquired tolerance is defined by the patient taking 60mg of oral morphine daily (or equianalgesic dose of another opioid) for 1 week or more. *Often associated with chronic pain. *May take more than usual dose to achieve desired pain control. Review of Systems Constitutional: Reports Fatigue and Weakness; Denies Fever Head: Reports Normocephalic and Atraumatic Cardiovascular: Denies Chest pain or Edema Respiratory: Denies Cough or Shortness of air Gastrointestinal: Reports Diarrhea (resolved); Denies Nausea, Vomiting, Abdominal pain or Melena Neurological: Reports Dizziness, Weakness and Problems with walking; Denies Headache, Syncope or Seizure Physical examination Most Recent Vital Signs: Most Recent Vital Signs Temperature 98.3 F 07/07/25 12:48 Temperature Source Oral 07/07/25 12:48 Pulse Rate 100 07/07/25 12:48 Respiratory Rate 20 07/07/25 12:48 Blood Pressure 138/88 07/07/25 12:48 O2 Sat by Pulse Oximetry 94 L 07/07/25 12:48 Height 6 ft 07/07/25 12:48 Weight 118.841 kg 07/07/25 12:48 Telemetry Heart Rate 69 05/15/25 13:56 Telemetry SPO2 95 05/15/25 13:56 Appearance: Positive No Apparent Distress and Other (+alert and answers some questions appropriately, but has difficulty with others. Mumbles frequently. ) Skin: Positive [place], Warm, Good Turgor and Good Color HEENT: Positive Normocephalic and Atraumatic Neck: Positive Supple and Midline Trachea Chest/Lungs: Positive Clear to Auscultation Bilaterally, Rales, Rhonci and Wheezes Heart: Positive RRR GI/: Positive Soft, Nontender, Bowel Sounds Normal and No Distention Extremities: Negative Edema Neurological: Positive Cranial Nerves Intact, Alert, Disorinted and Other (+generalized weakness but no focal deficits ) Psychiatric: Positive Appropriate Mood and Appropriate Affect; Negative Oriented x4 Labs This Visit Labs This Visit: Labs This Visit 07/07/25 07/07/25 13:07 13:18 WBC 6.93 RBC 4.87 Hgb 14.3 Hct 41.4 L MCV 85.0 MCH 29.4 MCHC 34.5 RDW Coeff of [place] 13.2 Plt Count 155 Immature Gran % (Auto) 0.4 Neut % (Auto) 62.8 Lymph % (Auto) 27.0 Randolph % (Auto) 7.8 Eos % (Auto) 1.6 Baso % (Auto) 0.4 Neut # (Auto) 4.4 Lymph # (Auto) 1.9 Randolph # (Auto) 0.5 Eos # (Auto) 0.1 Baso # (Auto) 0.0 Immature Gran # (Auto) 0.0 Sodium 132.2 L Potassium 4.27 Chloride 96.6 L Carbon Dioxide 27.8 Anion Gap 12.07 BUN 15.2 Creatinine 0.97 Estimated GFR (MDRD) 77.00 BUN/Creatinine Ratio 15.67 Glucose 378.9 H Calcium 5.48 L* Magnesium 1.76 Total Bilirubin 1.35 H AST 34.2 ALT 34.6 Alkaline Phosphatase 86.6 Troponin I < 0.012 Total Protein 6.74 Albumin 4.26 Globulin 2.48 Albumin/Globulin Ratio 1.71 Urine Color Light Urine Clarity Clear Urine pH 7.0 Ur Specific [place] 1.010 Urine Protein Negative Urine Glucose (UA) 3+ H Urine Ketones Negative Urine Blood Negative Urine Nitrite Negative Urine Bilirubin Negative Urine Urobilinogen 0.2 Ur Leukocyte Esterase Negative Imaging Imaging: EXAMINATION: HEAD CT WITHOUT CONTRAST HISTORY: closed head injury, parietal scalp TECHNIQUE: Noncontrast CT of the brain was performed with images acquired from skull base to vertex. 2-D coronal and sagittal reformatted images were obtained from the axial source images. Contrast Dose: None. CT Dose Reduction Techniques Performed: Yes. COMPARISON: None. FINDINGS: Topogram demonstrates No significant abnormality. Intraparenchymal hemorrhage: None. Parenchyma: Mild chronic small vessel ischemic changes. No mass effect or midline shift. Extra-axial spaces and basal cisterns: Unremarkable Ventricles: No hydrocephalus. Paranasal sinuses and mastoid air cells: Visualized portions of paranasal sinuses are clear. Mastoid air cells are clear. Orbits: Bilateral pseudophakia Sella/Skull Base: Unremarkable Bones/soft tissues: No acute osseous findings. No discrete acute soft tissue findings. IMPRESSION: No acute intracranial abnormality. Review Statement Review Statement: I have independently reviewed and interpreted the labs/EKGs/imaging that were ordered by the ER provider. I have reviewed all outside records that are available currently in our EMR including imaging/notes/labs from previous visits. Plan Plan: 1. Altered mental status with frequent falls - Repeat calcium was normal, suspect initial value was a lab error. Will repeat in AM. However, now no etiology for his AMS. Will add ammonia level, tsh, viral panel, ABG. UA negative. CT head negative. 2. Hypocalcemia - likely lab error, repeat normalized. 3. Hypertension - Cont home meds 4. DMT2 - Cont home meds, add sliding scale, hold metformin, will transition toujeo to lantus 5. GERD - Cont home meds 6. Polypharmacy - Patient is on flexeril, diazepam, and hydrocodone. Would benefit from tapering down on these medications outpatient or trying to eliminate some. DVT Prophylaxis: Ambulation Time Spent: Greater than 80 minutes spent with patient, 50% of the time spent with this patient was devoted to counseling and coordination of care. [facility] minutes spent discussing advance care planning. Admit to: OBs Discussed Plan of Care with Dr. Geoffrey Hernandez. Medications Medication Orders: Medications Ordered Category Date Time Status Acetaminophen [Tylenol] Meds 07/07/25 14:52 Active 650 mg PO Q4H PRN Ondansetron HCl/Pf [Zofran Sdv] Meds 07/07/25 14:52 Active 4 mg IVP Q6H PRN
[2025-07-07 15:18] LABS: CREATININE 1.1 mg/dL (0.60-1.10)
[2025-07-07] MEDS ORDERED: NORCO 10-325 PO PRN (16:05)
[2025-07-07] MEDS ORDERED: DEXTROSE 50%-WATER ABBOJECT IVP PRN (16:09)
[2025-07-07 16:42] LABS: CKMB % 0.8; CREATINE KINASE MB 3.2 ng/ml (0.0-2.38)
[2025-07-07 16:46] VITALS: BMI 34.9
[2025-07-07] MEDS: COREG PO SCH (17:02)
[2025-07-07] MEDS: FERROUS SULFATE PO SCH (17:02)
--- NOTE | 2025-07-07 17:39 | DI ---
EXAM: CHEST RADIOGRAPH (1 VIEW) HISTORY: Shortness of breath COMPARISON: October 11, 2023 FINDINGS: Lines/tubes: None Lungs and Pleura: No focal consolidation. No pleural effusion. No pneumothorax. Heart/vasculature: Heart size and pulmonary vascularity are within normal limits. Atherosclerotic calcifications of the thoracic aorta. Bones/Soft Tissues: No acute findings. Partially demonstrated right shoulder prosthesis. Scattered chronic degenerative changes. Remote ununited and displaced right clavicular shaft fracture. IMPRESSION: No acute cardiopulmonary abnormality.
[2025-07-07 18:15] LABS: ABG O2 HGB 91.3 % (95-100); ABG PCO2 45.0 mmHg (35-45); ABG PH 7.40 (7.35-7.45); ABG PO2 65.0 mmHg (85-100); BEecf 3.1 (-2.0-3.0); HCO3 27.9 (21-28); TCO2 29.3 (19-24)
[2025-07-07 18:16] LABS: FI02 21.0 %
[2025-07-07] MEDS: HUMALOG (10 ML VIAL) SUBCUT PRN (18:30)
[2025-07-07] MEDS: ELAVIL PO SCH (20:02)
[2025-07-07] MEDS: NEURONTIN PO SCH (20:02)
[2025-07-07] MEDS: FLEXERIL PO SCH (20:03)
[2025-07-07 20:25] LABS: BORDETELLA PARAPERTUSSIS (PCR) NOT DETECTED (NOT DETECT); BORDETELLA PERTUSSIS (PCR) NOT DETECTED (NOT DETECT); CHLAMYDIA PNEUMONIAE (PCR) NOT DETECTED (NOT DETECT); CORONAVIRUS 229E (PCR) NOT DETECTED (NOT DETECT); CORONAVIRUS HKU1 (PCR) NOT DETECTED (NOT DETECT); CORONAVIRUS NL63 (PCR) NOT DETECTED (NOT DETECT); CORONAVIRUS OC43 (PCR) NOT DETECTED (NOT DETECT); HUMAN METAPNEUMOVIRUS (PCR) NOT DETECTED (NOT DETECT); HUMAN RHINOVIRUS/ENTEROV (PCR) NOT DETECTED (NOT DETECT); INFLUENZA A H1 (PCR) NOT DETECTED (NOT DETECT); INFLUENZA A H1-2009 (PCR) NOT DETECTED (NOT DETECT); INFLUENZA A H3 (PCR) NOT DETECTED (NOT DETECT); INFLUENZA B (PCR) NOT DETECTED (NOT DETECT); MYCOPLASMA PNEUMONIAE (PCR) NOT DETECTED (NOT DETECT); PARAINFLUENZA VIRUS 1 (PCR) NOT DETECTED (NOT DETECT); PARAINFLUENZA VIRUS 2 (PCR) NOT DETECTED (NOT DETECT); PARAINFLUENZA VIRUS 3 (PCR) NOT DETECTED (NOT DETECT); PARAINFLUENZA VIRUS 4 (PCR) NOT DETECTED (NOT DETECT); RESPIRATORY SYNCYTIAL V (PCR) NOT DETECTED (NOT DETECT); SARS_COV_2 (PCR) NOT DETECTED (NOT DETECT)
[2025-07-07] MEDS ORDERED: NON-FORMULARY MEDICATION (Ferrous Sulfate [Ferosul] 325 mg (65 mg iron) tablet) PO SCH (21:00)
[2025-07-07 21:14] LABS: ADENOVIRUS (PCR) NOT DETECTED (NOT DETECT)
[2025-07-07] MEDS: VALIUM PO PRN (21:52)
[2025-07-08 05:33] VITALS: BP 162/83; PULSE 82; RESP 18; TEMP 97.6
[2025-07-08] MEDS ORDERED: MICRO-K CAP PO SCH (06:00)
[2025-07-08 06:10] LABS: IMMATURE GRANULOCYTE # (AUTO) 0.0 (0.0-1.0); IMMATURE GRANULOCYTE % (AUTO) 0.4 % (0.0-5.0); RDW COEFFICIENT OF VARIATION 13.1 % (11.6-14.8)
[2025-07-08] MEDS: LASIX TAB PO SCH (06:11)
[2025-07-08] MEDS: PROTONIX PO SCH (06:11)
[2025-07-08 06:31] LABS: CREATININE 0.85 mg/dL (0.60-1.10)
[2025-07-08] MEDS: RAPAFLO PO SCH (09:31)
[2025-07-08] MEDS: CRESTOR PO SCH (09:31)
[2025-07-08] MEDS: CYMBALTA PO SCH (09:31)
[2025-07-08] MEDS: ASPIRIN EC PO SCH (09:31)
[2025-07-08] MEDS: ZESTRIL PO SCH (09:31)
[2025-07-08] MEDS: LANTUS SUBCUT SCH (09:32)
[2025-07-08] MEDS: TRIGLIDE PO SCH (09:32)
[2025-07-08] MEDS: K-DUR PO SCH (09:32)
--- NOTE | 2025-07-08 13:14 | DCSUM ---
Admission Date Admission Date: 07/07/25 Discharge Date Discharge Date: 07/08/25 Admission Diagnosis Admission Diagnosis: 1. Altered mental status with frequent falls Discharge Diagnosis Discharge Diagnosis: 1. Altered mental status with frequent falls - improved 2. Hypocalcemia - likely lab error 3. Hypertension 4. DMT2 5. GERD 6. Polypharmacy - Patient is on flexeril, diazepam, and hydrocodone. Would benefit from tapering down on these medications outpatient or trying to eliminate some. Hospital Provider Hospital Provider: PRIMITIVO COYLE PA-C, [facility] Primary Care Physician Primary Care Physician: DAMI MOSS APRN Summary of History and Physical Summary of History and Physical: Patient is a 69-year-old male from home with past medical history of hypertension, GERD, diabetes, hyperlipidemia, CKD who presents to the ER with for concerns of confusion and weakness and falls. provides most of the history. She states for the last 5 or so days he has been more confused and falling frequently to the point he has multiple scabs and bruises on him. She states today she found him on the porch naked and had fallen. She states last night he was talking about going outside and changing a tire. She states normally he might be a little forgetful or get mixed up easily but not like this. In the ER he was find to be hypocalcemic with a calcium of 5.48. It is historically normal. Sodium mildly low. Otherwise normal workup. CT head negative. Urinalysis negative. He was given 1 g of calcium gluconate. EKG did not show any QT prolongation. Will admit to [facility]. The only other associated symptoms they could think of was that he did have diarrhea for several days last week but it has since resolved. Hospital Course Subjective: Once on the floor patient's BMP was repeated which actually showed normal calc ium. Thought to be due to a lab error. Since no etiology for weakness, confusion, falls additional workup was added and included ammonia level, TSH, respiratory panel. All within normal limits. CT head was negative. Urinalysis negative. Chest x-ray is negative. Patient had been given a liter of fluids in the ER. He did not have any diarrhea. On 07/08 patient has been ambulatory. He has been unsteady but overall appears back to his normal per his . He seems less confused today, less mumbling, answering questions appropriately other than the year. Discussed with that I do not have any specific etiology other than possibly he had a viral illness with the diarrhea couple weeks ago and has been recovering from that. Discussed concern for maybe some mild underlying dementia that has been exacerbated with all of this. She will follow-up with PCP this week for recheck. He does have a walker at home and I encouraged him to use this for better stability. Offered home health however he declines at this time. She knows that she can ask PCP for a referral if needed. Discharged to home. Appearance: Pleasant, No Apparent Distress, Alert and Other (+oriented to person and place, states it is 1953, otherwise answers questions appropriately today ) HEENT: MMM CVS: Other (RRR) Abdomen: Soft, Non-Tender and No Distention Respiratory: No Accessory Muscle Use Extremities: No Edema Additional Findings: Ambulatory in room and in hallways with walker. Vital Signs: Most Recent Vital Signs Temperature 97.6 F 07/08/25 05:29 Temperature Source Temporal Artery Scan 07/08/25 05:29 Temperature Source Oral 07/07/25 12:48 Pulse Rate 82 07/08/25 05:29 Respiratory Rate 18 07/08/25 05:29 Blood Pressure 162/83 H 07/08/25 05:29 Blood Pressure Mean 109 07/08/25 05:29 Blood Pressure Left Arm 152/82 07/07/25 15:40 Blood Pressure Location Right Arm 07/08/25 05:29 Blood Pressure Position Supine 07/08/25 05:29 O2 Sat by Pulse Oximetry 93 L 07/08/25 05:29 Oxygen Delivery Method Room Air 07/08/25 12:18 Height 6 ft 1 in 07/07/25 15:40 Weight 119.9 kg 07/07/25 15:40 Telemetry Type Bedside Monitor 07/08/25 01:00 Telemetry Monitoring Continues 07/08/25 01:00 Telemetry Heart Rate 81 07/08/25 01:00 Telemetry SPO2 94 07/08/25 01:00 EKG CA Interval 0.18 07/08/25 01:00 EKG QRS Interval 0.13 H 07/08/25 01:00 Telemetry Strip Reading SR W/ BBB 07/08/25 01:00 Imaging: EXAMINATION: HEAD CT WITHOUT CONTRAST HISTORY: closed head injury, parietal scalp TECHNIQUE: Noncontrast CT of the brain was performed with images acquired from skull base to vertex. 2-D coronal and sagittal reformatted images were obtained from the axial source images. Contrast Dose: None. CT Dose Reduction Techniques Performed: Yes. COMPARISON: None. FINDINGS: Topogram demonstrates No significant abnormality. Intraparenchymal hemorrhage: None. Parenchyma: Mild chronic small vessel ischemic changes. No mass effect or midline shift. Extra-axial spaces and basal cisterns: Unremarkable Ventricles: No hydrocephalus. Paranasal sinuses and mastoid air cells: Visualized portions of paranasal sinuses are clear. Mastoid air cells are clear. Orbits: Bilateral pseudophakia Sella/Skull Base: Unremarkable Bones/soft tissues: No acute osseous findings. No discrete acute soft tissue findings. IMPRESSION: No acute intracranial abnormality. EXAM: CHEST RADIOGRAPH (1 VIEW) HISTORY: Shortness of breath COMPARISON: October 11, 2023 FINDINGS: Lines/tubes: None Lungs and Pleura: No focal consolidation. No pleural effusion. No pneumothorax. Heart/vasculature: Heart size and pulmonary vascularity are within normal limits. Atherosclerotic calcifications of the thoracic aorta. Bones/Soft Tissues: No acute findings. Partially demonstrated right shoulder prosthesis. Scattered chronic degenerative changes. Remote ununited and displaced right clavicular shaft fracture. IMPRESSION: No acute cardiopulmonary abnormality. Lab Results Last 24 Hours: 07/08/25 07/08/25 07/07/25 10:16 06:00 19:57 WBC 5.04 RBC 4.79 Hgb 14.0 Hct 40.2 L MCV 83.9 MCH 29.2 MCHC 34.8 RDW Coeff of [place] 13.1 Plt Count 141 Immature Gran % (Auto) 0.4 Neut % (Auto) 57.5 Lymph % (Auto) 31.0 [place] % (Auto) 8.3 Eos % (Auto) 2.4 Baso % (Auto) 0.4 Neut # (Auto) 2.9 Lymph # (Auto) 1.6 [place] # (Auto) 0.4 Eos # (Auto) 0.1 Baso # (Auto) 0.0 Immature Gran # (Auto) 0.0 Puncture Site Base Excess O2 Saturation ABG pH ABG pCO2 ABG pO2 ABG HCO3 ABG Total CO2 Pan Test Hemoglobin Oxyhemoglobin Carboxyhemoglobin Total Hemoglobin FiO2 % Sodium 135.2 Potassium 4.06 Chloride 103.4 Carbon Dioxide 26.6 Anion Gap 9.26 BUN 9.5 Creatinine 0.85 Estimated GFR (MDRD) 89.00 BUN/Creatinine Ratio 11.17 Glucose 268.0 H D Calcium 9.11 Magnesium Total Bilirubin 1.19 AST 31.2 ALT 34.1 Alkaline Phosphatase 64.6 Ammonia Total Creatine Kinase CK-MB (CK-2) CK-MB (CK-2) % Troponin I Total Protein 6.30 Albumin 3.95 Globulin 2.35 Albumin/Globulin Ratio 1.68 Vitamin B12 244 Folate 15.70 TSH Urine Color Urine Clarity Urine pH Ur Specific [place] Urine Protein Urine Glucose (UA) Urine Ketones Urine Blood Urine Nitrite Urine Bilirubin Urine Urobilinogen Ur Leukocyte Esterase Adenovirus (PCR) Not detected B. pertussis DNA (PCR) Not detected B.parapertussis DNA PCR Not detected C. pneumoniae DNA (PCR) Not detected Coronavirus OC43 (PCR) Not detected Coronavirus HKU1 (PCR) Not detected Coronavirus 229E (PCR) Not detected Coronavirus NL63 (PCR) Not detected Human Metapneumovir PCR Not detected Influenza A (H1) PCR Not detected Influ A (H1N1/09) PCR Not detected Influenza A (H3) PCR Not detected Influenza Type A (PCR) Not detected Influenza B (RT-PCR) Not detected M. pneumoniae (PCR) Not detected Parainfluenza 1 (PCR) Not detected Parainfluenza 2 (PCR) Not detected Parainfluenza 3 (PCR) Not detected Parainfluenza 4 (PCR) Not detected RSV (PCR) Not detected Entero/Rhino (PCR) Not detected SARS-CoV-2 (PCR) Not detected 07/07/25 07/07/25 07/07/25 17:58 16:15 15:03 WBC RBC Hgb Hct MCV MCH MCHC RDW Coeff of [place] Plt Count Immature Gran % (Auto) Neut % (Auto) Lymph % (Auto) [place] % (Auto) Eos % (Auto) Baso % (Auto) Neut # (Auto) Lymph # (Auto) [place] # (Auto) Eos # (Auto) Baso # (Auto) Immature Gran # (Auto) Puncture Site Rrad Base Excess 3.1 H O2 Saturation 92.4 L ABG pH 7.40 ABG pCO2 45.0 ABG pO2 65.0 L ABG HCO3 27.9 ABG Total CO2 29.3 H Pan Test Pos Hemoglobin 1.2 Oxyhemoglobin 91.3 L Carboxyhemoglobin 2.9 H Total Hemoglobin 14.7 FiO2 % 21.0 Sodium Potassium Chloride Carbon Dioxide Anion Gap BUN Creatinine Estimated GFR (MDRD) BUN/Creatinine Ratio Glucose Calcium Magnesium Total Bilirubin AST ALT Alkaline Phosphatase Ammonia < 8.7 L Total Creatine Kinase 399.7 H CK-MB (CK-2) 3.200 H CK-MB (CK-2) % 0.8000 Troponin I Total Protein Albumin Globulin Albumin/Globulin Ratio Vitamin B12 Folate TSH Urine Color Urine Clarity Urine pH Ur Specific [place] Urine Protein Urine Glucose (UA) Urine Ketones Urine Blood Urine Nitrite Urine Bilirubin Urine Urobilinogen Ur Leukocyte Esterase Adenovirus (PCR) B. pertussis DNA (PCR) B.parapertussis DNA PCR C. pneumoniae DNA (PCR) Coronavirus OC43 (PCR) Coronavirus HKU1 (PCR) Coronavirus 229E (PCR) Coronavirus NL63 (PCR) Human Metapneumovir PCR Influenza A (H1) PCR Influ A (H1N1/) PCR Influenza A (H3) PCR Influenza Type A (PCR) Influenza B (RT-PCR) M. pneumoniae (PCR) Parainfluenza 1 (PCR) Parainfluenza 2 (PCR) Parainfluenza 3 (PCR) Parainfluenza 4 (PCR) RSV (PCR) Entero/Rhino (PCR) SARS-CoV-2 (PCR) 07/07/25 07/07/25 07/07/25 15:02 13:18 13:07 WBC 6.93 RBC 4.87 Hgb 14.3 Hct 41.4 L MCV 85.0 MCH 29.4 MCHC 34.5 RDW Coeff of [place] 13.2 Plt Count 155 Immature Gran % (Auto) 0.4 Neut % (Auto) 62.8 Lymph % (Auto) 27.0 [place] % (Auto) 7.8 Eos % (Auto) 1.6 Baso % (Auto) 0.4 Neut # (Auto) 4.4 Lymph # (Auto) 1.9 [place] # (Auto) 0.5 Eos # (Auto) 0.1 Baso # (Auto) 0.0 Immature Gran # (Auto) 0.0 Puncture Site Base Excess O2 Saturation ABG pH ABG pCO2 ABG pO2 ABG HCO3 ABG Total CO2 Pan Test Hemoglobin Oxyhemoglobin Carboxyhemoglobin Total Hemoglobin FiO2 % Sodium 134.0 L 132.2 L Potassium 4.40 4.27 Chloride 100.0 96.6 L Carbon Dioxide 28.0 27.8 Anion Gap 10.40 12.07 BUN 14.0 15.2 Creatinine 1.10 0.97 Estimated GFR (MDRD) 66.00 77.00 BUN/Creatinine Ratio 12.72 15.67 Glucose 331.0 H 378.9 H Calcium 9.40 5.48 L* Magnesium 1.76 Total Bilirubin 1.35 H AST 34.2 ALT 34.6 Alkaline Phosphatase 86.6 Ammonia Total Creatine Kinase CK-MB (CK-2) CK-MB (CK-2) % Troponin I < 0.012 Total Protein 6.74 Albumin 4.26 Globulin 2.48 Albumin/Globulin Ratio 1.71 Vitamin B12 Folate TSH 1.430 Urine Color Light Urine Clarity Clear Urine pH 7.0 Ur Specific [place] 1.010 Urine Protein Negative Urine Glucose (UA) 3+ H Urine Ketones Negative Urine Blood Negative Urine Nitrite Negative Urine Bilirubin Negative Urine Urobilinogen 0.2 Ur Leukocyte Esterase Negative Adenovirus (PCR) B. pertussis DNA (PCR) B.parapertussis DNA PCR C. pneumoniae DNA (PCR) Coronavirus OC43 (PCR) Coronavirus HKU1 (PCR) Coronavirus 229E (PCR) Coronavirus NL63 (PCR) Human Metapneumovir PCR Influenza A (H1) PCR Influ A (H1N1/09) PCR Influenza A (H3) PCR Influenza Type A (PCR) Influenza B (RT-PCR) M. pneumoniae (PCR) Parainfluenza 1 (PCR) Parainfluenza 2 (PCR) Parainfluenza 3 (PCR) Parainfluenza 4 (PCR) RSV (PCR) Entero/Rhino (PCR) SARS-CoV-2 (PCR) Discharge Instructions Discharge Planning: Discharge Planning > [address] Geoffrey Hernandez. Discharge Medications: Medications at Discharge (Home Meds & RX) potassium chloride 10 mEq tablet,extended release 20 meq (2 x 10 mEq) PO QDAY #180 tabs 11/03/23 aspirin 81 mg tablet,delayed release 81 mg PO DAILY #90 tabs 03/13/25 clotrimazole-betamethasone 1 %-0.05 % topical cream 1 applic topical 2XD #15 grams 03/13/25 omega-3 acid ethyl esters 1 gram capsule 2 cap PO 2XD #360 caps 03/13/25 pen needle, diabetic 31 gauge x 3/16" #100 inserts 03/20/25 semaglutide 2 mg/dose (8 mg/3 mL) subcutaneous pen injector (Ozempic) 2 mg (0.75 mL) subcut WEEKLY #3 mL 04/18/25 Toujeo Max U-300 SoloStar 300 unit/mL (3 mL) subcutaneous insulin pen (insulin glargine U-300 conc) 94 unit (0.3133 mL) subcut DAILY #6 mL 04/26/25 Humalog KwikPen Insulin 100 unit/mL subcutaneous (insulin lispro) 36 unit (0.36 mL) subcut 3XD #110 mL 05/30/25 diazepam 2 mg tablet 2 mg PO BID 30 days #60 tab-caps 06/05/25 esomeprazole magnesium 40 mg capsule,delayed release 40 mg PO DAILY #90 caps 06/05/25 cyclobenzaprine 10 mg tablet 10 mg PO BEDTIME #30 tabs 06/12/25 carvedilol 6.25 mg tablet 6.25 mg PO 2XD #180 tabs 06/20/25 duloxetine 60 mg capsule,delayed release 60 mg PO DAILY #90 caps 06/20/25 ferrous sulfate 325 mg (65 mg iron) tablet (FeroSul) 325 mg PO 2XD #180 tabs 06/20/25 furosemide 40 mg tablet 40 mg PO DAILY #90 tabs 06/20/25 gabapentin 300 mg capsule 300 mg PO 2XD #180 caps 06/20/25 lisinopril 10 mg tablet 10 mg PO DAILY #90 tabs 06/20/25 metformin 1,000 mg tablet 1,000 mg PO 2XD #180 tabs 06/20/25 amitriptyline 100 mg tablet 100 mg PO BEDTIME #90 tabs 06/26/25 silodosin 8 mg capsule 8 mg PO DAILY #90 caps 06/26/25 fenofibrate nanocrystallized 145 mg tablet 145 mg PO BEDTIME 07/07/25 hydrocodone 10 mg-acetaminophen 325 mg tablet 1 tab PO BID PRN pain 07/07/25 rosuvastatin 40 mg tablet 40 mg PO BEDTIME 07/07/25 tramadol 50 mg tablet 50 mg PO BEDTIME 07/07/25 Discharge Plan Discharge Discharge Orders: Discharge Patient (ONCE); Ordered 07/08/25 Ordered By: PRIMITIVO COYLE Activity Restrictions/Additional Instructions: DISCHARGE TO HOME DIET: DIABETIC ACTIVITY: FALL PRECAUTIONS, PTOT CALL PCP THURSDAY MORNING TO MAKE FOLLOW UP APT RETURN WITH WORSENING SYMPTOMS Patient Disposition: HOME WITH FAMILY CARE Prescriptions: Continued potassium chloride 10 mEq tablet extended release 20 meq PO QDAY Qty: 180 1RF aspirin 81 mg tablet,delayed release (DR/EC) 81 mg PO DAILY Qty: 90 0RF clotrimazole-betamethasone 1-0.05 % cream 1 applic topical 2XD Qty: 15 0RF omega-3 acid ethyl esters 1 gram capsule 2 cap PO 2XD Qty: 360 0RF Ozempic 2 mg/dose (8 mg/3 mL) pen injector 2 mg subcut WEEKLY Qty: 3 3RF Patient Comments: On insulin glargine U-300 conc [Toujeo Max U-300 SoloStar] 300 unit/mL (3 mL) insulin pen 94 unit subcut DAILY Qty: 6 3RF insulin lispro [Humalog KwikPen Insulin] 100 unit/mL insulin pen 36 unit subcut 3XD Qty: 110 1RF diazepam 2 mg tablet 2 mg PO BID 30 Days Qty: 60 0RF esomeprazole magnesium 40 mg capsule,delayed release(DR/EC) 40 mg PO DAILY Qty: 90 1RF cyclobenzaprine 10 mg tablet 10 mg PO BEDTIME Qty: 30 0RF carvedilol 6.25 mg tablet 6.25 mg PO 2XD Qty: 180 1RF ferrous sulfate [FeroSul] 325 mg (65 mg iron) tablet 325 mg PO 2XD Qty: 180 0RF duloxetine 60 mg capsule,delayed release(DR/EC) 60 mg PO DAILY Qty: 90 1RF furosemide 40 mg tablet 40 mg PO DAILY Qty: 90 1RF lisinopril 10 mg tablet 10 mg PO DAILY Qty: 90 1RF gabapentin 300 mg capsule 300 mg PO 2XD Qty: 180 1RF metformin 1,000 mg tablet 1,000 mg PO 2XD Qty: 180 0RF silodosin 8 mg capsule 8 mg PO DAILY Qty: 90 1RF amitriptyline 100 mg tablet 100 mg PO BEDTIME Qty: 90 0RF hydrocodone-acetaminophen 10-325 mg tablet 1 tab PO BID PRN (Reason: pain) tramadol 50 mg tablet 50 mg PO BEDTIME rosuvastatin 40 mg tablet 40 mg PO BEDTIME fenofibrate nanocrystallized 145 mg tablet 145 mg PO BEDTIME No Action (DME) pen needle, diabetic 31 gauge x 3/16" needle See Rx Instructions .ROUTE .COMPLEX Qty: 100 5RF Dose Instruction: DIRECTED E11.9 DM2 TEST 3 TIMES DAILY Rx Instructions: DIRECTED E11.9 DM2 TEST 3 TIMES DAILY Did you review [place] GAMING DIRECTOR for ALL controlled substances?: Not Applicable Discussed opioids are addictive and Narcan is available by prescription or from pharmacy.: No Condition: Stable
== END 2025-07-08 13:30 | disposition home or self-care (01) ==
LOC: ED 12:44 → INTOOBSV 15:04 → SCU 15:04
PROVIDERS: ADMIT Hospitalist; ATTEND Physician Assistant
DX: R41.82 Altered mental status, unspecified; Z51.81 Encounter for therapeutic drug level monitoring; I10 Essential (primary) hypertension; K21.9 Gastro-esophageal reflux disease without esophagitis; S09.90XA Unspecified injury of head, initial encounter; E11.9 Type 2 diabetes mellitus without complications; E83.51 Hypocalcemia; R29.6 Repeated falls; J44.9 Chronic obstructive pulmonary disease, unspecified; W19.XXXA Unspecified fall, initial encounter; Z79.899 Other long term (current) drug therapy; Z20.822 Contact with and (suspected) exposure to COVID-19; M62.81 Muscle weakness (generalized); R05.1 Acute cough